=== PATIENT | male | born 1950 | race Caucasian/White ===

== ENCOUNTER 2017-03-10 13:10 | Inpatient (IN) | payer MEDICARE, BC ==
[2017-03-10] MEDS ORDERED: ALBUTEROL SULFATE/IPRATROPIUM 3 ML NEBU IH ONE ×2 (13:15→13:20)
[2017-03-10] MEDS ORDERED: METHYLPREDNISOLONE SOD SUCC/PF 125 MG/2 ML VIAL IV ONE (13:15)
[2017-03-10] MEDS ORDERED: METHYLPREDNISOLONE SOD SUCC/PF 40 MG/ML VIAL ONE (13:20)
--- NOTE | 2017-03-10 13:28 | ERNOTE ---
Dyspnea - Date Date of Service: 03/10/17 - General Presenting Symptoms: shortness of breath, difficulty of breathing Time Seen by Provider: 03/10/17 13:15 Source: patient, family Exam Limitations: no limitations - Immun/Allergies/Home Medications Allergies/Adverse Reactions: Allergies No Known Drug Allergies Allergy (Verified 03/10/17 13:29) Home Medications: HOME MEDICATIONS Blood Sugar Diagnostic, Drum [Accu-Chek Compact] 1 each MC DAILY 05/18/16 [Last Taken Unknown] Ferrous Sulfate [Iron] 325 mg PO DAILY 05/18/16 [Last Taken Unknown] Fluticasone Propionate [Flonase] 1 spray NS BID 05/18/16 [Last Taken Unknown] Lisinopril/Hydrochlorothiazide [Lisinopril-Hctz 20-12.5 mg Tab] 1 each PO DAILY 05/18/16 [Last Taken Unknown] Montelukast Sodium [Singulair] 10 mg PO HS 05/18/16 [Last Taken Unknown] Pantoprazole Sodium [Protonix] 40 mg PO DAILY 05/18/16 [Last Taken Unknown] Vitamin B Complex/Folic Acid [Complex B-100 ER Caplet] 0.4 mg PO DAILY 05/18/16 [Last Taken Unknown] metFORMIN HCL [Glucophage] 1,000 mg PO BIDWM 05/18/16 [Last Taken Unknown] Aspirin [Aspirin Enteric Coated] 81 mg PO DAILY 03/10/17 [Last Taken Unknown] - History of Present Illness Narrative: Pt. comes in with c/o SOB that started last night and worsened since then. Pt. has known COPD and stats that he developed the cough yesterday and then today noted he had a fever and his breathing became extremely congested. Pt. denies any treatment using his combivent inhaler or albuterol nebs prior to arrival or within the past 12 hours. Review of Systems - Review of Systems Constitutional: Present: fever, chills, diaphoresis, weakness, fatigue, malaise. Absent: recent illness, weight loss EYE: Present: no symptoms reported ENT: Present: no symptoms reported. Absent: ear pain, nose congestion, nasal drainage, sore throat Respiratory: Present: shortness of breath, cough, orthopnea, wheezing Cardiology: Present: chest pain - R sided. Absent: palpitations, syncope, edema Gastrointestinal/Abdominal: Present: no symptoms reported. Absent: nausea, vomiting, diarrhea Genitourinary: Present: no symptoms reported Musculoskeletal: Present: no symptoms reported. Absent: back pain, joint pain Skin: Present: no symptoms reported Neurological: Present: weakness. Absent: anxiety, depressed, dizziness/light- headedness, numbness, tingling All Other Systems: All systems neg except as marked - Patient's Past Medical History Patient History - Medical: Anemia, Diabetes Type 2, GERD Patient History - Cardiac/Respiratory: Asthma, Peripheral Vascular Disease Patient History - Cancer: No Hx of Cancer Patient History - Surgical Procedures: Colonoscopy, Cardiac stent, EGD, Total Knee Replacement, Vasectomy, Other Patient History - Other: None - Family History Brother Family History - Medical: No pertinent hx, Other Family History - Cardiac/Respiratory: No pertinent hx Father Family History - Medical: , No pertinent hx Family History - Cardiac/Respiratory: No pertinent hx Grandfather-Maternal Family History - Medical: Diabetes Type 2 Family History - Cardiac/Respiratory: No pertinent hx Mother Family History - Medical: , Hypothyroidism, Osteoporosis Family History - Cardiac/Respiratory: Hypertension Sister Family History - Medical: Other Family History - Cardiac/Respiratory: No pertinent hx - Social History Living Situations: spouse Abuse History: No History of abuse Psych History: No pertinent hx Alcohol Use: occasionally Drug Use: none Physical Exam - Physical Exam General Appearance: Present: wd/wn, alert, no apparent distress Head Exam: Present: normal inspection, no evidence of injury Eye Exam: Normal inspection: bilateral, PERRL: bilateral, EOMI: bilateral Ears, Nose, Throat: Present: normal ENT inspection, normal pharynx Neck: Present: normal inspection, nontender. Absent: lymphadenopathy (R), lymphadenopathy (L) Respiratory: Present: respiratory distress, accessory muscle use - abdominal subcostal, expiration (prolonged), rhonchi, wheezing - throughout exp and insp Cardiovascular/Chest: Present: no murmur, normal peripheral pulses, tachycardia Gastrointestinal/Abdominal: Present: normal bowel sounds, nontender, nondistended Back Exam: Present: normal inspection, normal range of motion, no CVA tenderness , no vertebral tenderness Extremity Exam: Present: normal inspection, non-tender, normal range of motion, no edema Neurological Exam: Present: alert, oriented, normal mood/affect, no motor/ sensory deficits, edge bonder II-XII nml as tested, normal cerebellar test Skin Exam: Present: diaphoresis, pallor ED Progress - Date and Time Seen: Date and Time: 03/10/17 14:[address] Pepe and will change abx to rocephin and zmax per his request and admit for sepsis and pneumonia. - Results and Orders Patient's Lab Results:: I have reviewed the patient's lab results. - Vital Signs Patient's Vital Signs:: I have reviewed the patient's vital signs. - EKG EKG: other - sinus tach no acute EKG read: Reviewed by me EKG Comments: interp by dr jain - X-Ray X-Ray #1 X-Ray: chest Interpretation: Reviewed by me X-ray Comments: RUL and RLL consolidation Departure Clinical Impression: Hypoxia Sepsis Qualifiers: Sepsis type: sepsis due to unspecified organism Qualified Code(s): A41.9 - Sepsis, unspecified organism Pneumonia Qualifiers: Pneumonia type: due to unspecified organism Laterality: right Lung location: unspecified part of lung Qualified Code(s): J18.9 - Pneumonia, unspecified organism - Departure Disposition: [facility] Condition: Serious
[2017-03-10 13:37] LABS: Hematocrit 34.7 % (42.0-52.0); Hemoglobin 11.5 gm/dL (13.5-18.0); Mean Cell Volume 105.5 fl (78-100); Mean Corpuscular Hgb Conc 33.1 g/dl (32-36); Mean Platelet Volume 10.4 fl (6.0-9.5); Red Blood Count 3.29 M/mm3 (4.7-6.0); White Blood Count 13.6 K/mm3 (4.0-10.5)
[2017-03-10 13:41] LABS: Total Cells Counted 100
[2017-03-10 13:50] LABS: Platelet Count 90 K/mm3 (150-450)
[2017-03-10] MEDS ORDERED: ALBUTEROL SULFATE 2.5 MG/3 ML VIAL.NEB IH ONE (13:52)
[2017-03-10] MEDS ORDERED: LEVOFLOXACIN/D5W 750 MG/150 ML BAG IV ONE (13:53)
[2017-03-10] MEDS ORDERED: ALBUTEROL SULFATE 2.5 MG/0.5 ML VIAL.NEB IH ONE (13:57)
[2017-03-10 13:58] LABS: Band 15 % (0-2.0); Eosinophil 1 % (0-3); Lymphocyte 6 % (20-51); Monocyte 7 % (0-9); Neutrophil 71 % (42-75); Neutrophil # 9.7 K/mm3 (1.3-6.0)
[2017-03-10 13:59] LABS: Platelet Estimate Decreased (NORMAL)
[2017-03-10 14:01] LABS: Macrocytosis 2+
[2017-03-10 14:05] LABS: Anisocytosis 1+
[2017-03-10 14:11] LABS: ALT 38 U/L (19-67); AST 41 U/L (0-48); Albumin * 3.4 gm/dl (3.4-5.0); Alkaline Phosphatase * 81 U/L (50-170); Anion Gap 17.6 mmol/L (6.8-13.8); BNP * 3250 pg/mL (5-350); Bilirubin, Total 1.9 mg/dL (0.0-1.1); Blood Urea Nitrogen 20 mg/dL (6-23); Calcium * 8.8 mg/dL (7.9-10.9); Carbon Dioxide 24.2 mmol/L (24-32.6); Chloride 98 mmol/L (97-106); Glucose * 183 mg/dL (70-110); Potassium 4.8 mmol/L (3.4-4.6); Sodium 135 mmol/L (132-142); Total Protein 7.2 gm/dL (6.2-8.2)
[2017-03-10 14:11] LABS: Phosphorus 2.8 mg/dL (2.2-4.2)
[2017-03-10 14:12] LABS: Troponin I Less than 0.017 ng/ml (0.00-0.10)
[2017-03-10 14:34] LABS: Urine Bilirubin 1 mg/dl (NEGATIVE); Urine Blood 50 /ul (NEGATIVE); Urine Ketone Negative (NEGATIVE); Urine Nitrite Negative (NEGATIVE); Urine Protein 30 mg/dL (NEGATIVE); Urine Specific Gravity 1.025 SP.GR. (1.005-1.030); Urine Urobilinogen Normal (NORMAL); Urine pH 5.5 pH (5.0-7.0)
[2017-03-10] MEDS ORDERED: MORPHINE SULFATE 2 MG/ML DISP.SYRIN IV ONE (14:35)
[2017-03-10] MEDS ORDERED: MAGNESIUM SULFATE IN WATER 50 ML IV ONE (14:38)
[2017-03-10] MEDS ORDERED: ACETAMINOPHEN 325 MG TABLET PO PRN (14:43)
[2017-03-10] MEDS ORDERED: AZITHROMYCIN 250 MG TABLET PO STA (14:43)
[2017-03-10] MEDS: NORMAL SALINE 1,000 ML IV SCH (14:50)
[2017-03-10] MEDS ORDERED: ACETAMINOPHEN 325 MG TABLET ONE (15:05)
[2017-03-10 15:07] LABS: Urine Appearance Clear; Urine Bacteria 1+; Urine WBC 0-5 /hpf (0-5)
[2017-03-10] MEDS ORDERED: NORMAL SALINE 1,000 ML IV ONE ×2 (16:32→20:24)
--- NOTE | 2017-03-10 16:39 | HP ---
Chief Complaint - Chief Complaint Date of Service: 03/10/17 Time of Service: 16:30 Chief Complaint: SOB, Right sided CP, cough, F/C. History of Present Illness: Pt. just seen a few days ago for routine f/u in my office and though was complaining of more fatigue, had no other sx. The fatigue continued over the next couple days, with cough beginning the day prior to admission, along with more malaise, but no other sx. He was noted to have some wheezing but nothing else. Cough progressed and on the am of admission he began having increase WOB , chest pain, chills, weakness. In ER he was found to be hypoxic into the mid 80's and in respiratory distress rr in the upper 20's with a chest xray showing scattered infiltrates throughout right lung. Labs were c/w sepsis and so he was admitted under sepsis protocol, treatment for pneumonia. He has several comorbidities that will make his recovery slower including diabetes and COPD and CAD with previous stent placement so do believe he will be here a min. of 2 midnights, possibly longer. - Patient's Past Medical History Patient History - Medical: Anemia, Diabetes Type 2, GERD Patient History - Cardiac/Respiratory: Asthma, COPD - previoius smoker, Peripheral Vascular Disease, CPAP/BiPAP Home Use - though doesn't always tolerate its us., Sleep Apnea Patient History - Cancer: No Hx of Cancer Patient History - Surgical Procedures: Colonoscopy, Cardiac stent, EGD, Total Knee Replacement, Vasectomy, Other Patient History - Other: None - Family History Brother Family History - Medical: No pertinent hx, Other Family History - Cardiac/Respiratory: No pertinent hx Father Family History - Medical: , No pertinent hx Family History - Cardiac/Respiratory: No pertinent hx Grandfather-Maternal Family History - Medical: Diabetes Type 2 Family History - Cardiac/Respiratory: No pertinent hx Mother Family History - Medical: , Hypothyroidism, Osteoporosis Family History - Cardiac/Respiratory: Hypertension Sister Family History - Medical: Other Family History - Cardiac/Respiratory: No pertinent hx - Social History Living Situations: home Abuse History: No History of abuse Psych History: No pertinent hx Smoking Status: Former smoker Have you smoked in the past 12 months: No Do you dip or chew tobacco: No Patient requests Smoking Cessation Consult: No Initiate information on Smoking Cessation: No Alcohol Use: occasionally Drug Use: none - Immunizations Immunizations Up to Date: Yes Hx Pneumococcal Vaccination: Yes History of Influenza Vaccine: Yes Review Of Systems (GEN) - Review of Systems Generalized/Overall Review: Present: Weakness, Chills, Fever, Malaise, Fatigue Respiratory: Present: Cough, Shortness of Breath Cardiac: Present: Chest Pain. Absent: Edema, Palpitations Abdominal: Present: Nausea. Absent: Vomiting Genitourinary: Present: No Symptoms Reported Musculoskeletal: Present: Back Pain Neurological: Present: Weakness Skin: Present: No Symptoms Reported Endocrine: Present: No Symptoms Reported Allergies/Adverse Reactions: Allergies Allergy/AdvReac Type Severity Reaction Status Date / Time No Known Drug Allergies Allergy Verified 03/10/17 16:44 Home Medications: HOME MEDICATIONS Blood Sugar Diagnostic, Drum [Accu-Chek Compact] 1 each MC DAILY 05/18/16 [Last Taken Unknown] Ferrous Sulfate [Iron] 325 mg PO DAILY 05/18/16 [Last Taken Unknown] Fluticasone Propionate [Flonase] 1 spray NS BID 05/18/16 [Last Taken Unknown] Lisinopril/Hydrochlorothiazide [Lisinopril-Hctz 20-12.5 mg Tab] 1 each PO DAILY 05/18/16 [Last Taken Unknown] Montelukast Sodium [Singulair] 10 mg PO HS 05/18/16 [Last Taken Unknown] Pantoprazole Sodium [Protonix] 40 mg PO DAILY 05/18/16 [Last Taken Unknown] Vitamin B Complex/Folic Acid [Complex B-100 ER Caplet] 0.4 mg PO DAILY 05/18/16 [Last Taken Unknown] metFORMIN HCL [Glucophage] 1,000 mg PO BIDWM 05/18/16 [Last Taken Unknown] Aspirin [Aspirin Enteric Coated] 81 mg PO DAILY 03/10/17 [Last Taken Unknown] Exam - Exam Vital Signs: Vital Signs - Last Taken Temp 38.1 C H 03/10/17 15:10 Pulse 120 H 03/10/17 15:10 Resp 28 H 03/10/17 15:10 BP 118/75 03/10/17 15:10 Pulse Ox 96 03/10/17 15:10 Constitutional: Present: Alert, Oriented x3, Moderate distress, Severe distress , Lethargic, Other - very ill appearing especially compared to baseline of a few days ago., Morbidly obese Eye Exam: bilateral eye: normal inspection, PERRL, EOMI Neck: Present: supple Back Exam: Present: normal inspection Respiratory: Present: respiratory distress, accessory muscle use, rales - rales throughout entire lung field on the right. wheezing on the left and right., wheezing Cardiovascular/Chest: Present: no edema, tachycardia Abdomen: Present: Normal bowel sounds, soft, nontender, nondistended, no hepatospenomegaly /Rectal: Present: Exam deferred Extremity: Present: no pedal edema, no calf tenderness Skin Exam: Present: normal color Neurologic: Present: normal mood/affect, oriented x 3 Appearance: Present: appropriate appearance, appropriate insight Eye contact: Present: cooperative, good eye contact, normal speech Thoughts: Present: normal thought pattern, no apparent hallucination Diagnostic Studies: Laboratory Results WBC 13.6 K/mm3 (4.0-10.5) H 03/10/17 13:30 RBC 3.29 M/mm3 (4.7-6.0) L 03/10/17 13:30 Hgb 11.5 gm/dL (13.5-18.0) L 03/10/17 13:30 Hct 34.7 % (42.0-52.0) L 03/10/17 13:30 MCV 105.5 fl (78-100) H 03/10/17 13:30 MCH 35.0 pg (27-31) H 03/10/17 13:30 MCHC 33.1 g/dl (32-36) 03/10/17 13:30 RDW 13.0 % (11.5-14.0) 03/10/17 13:30 Plt Count 90 K/mm3 (150-450) L 03/10/17 13:30 MPV 10.4 fl (6.0-9.5) H 03/10/17 13:30 Neutrophils % (Manual) 71 % (42-75) 03/10/17 13:30 Band Neuts % (Manual) 15 % (0-2.0) H 03/10/17 13:30 Lymphocytes % (Manual) 6 % (20-51) L 03/10/17 13:30 Monocytes % (Manual) 7 % (0-9) 03/10/17 13:30 Eosinophils % (Manual) 1 % (0-3) 03/10/17 13:30 Neutrophils # (Manual) 9.7 K/mm3 (1.3-6.0) H 03/10/17 13:30 Lymphocytes # (Manual) 0.8 k/mm3 (1.5-3.5) L 03/10/17 13:30 Monocytes # (Manual) 1.0 k/mm3 (0.0-1.0) 03/10/17 13:30 Eosinophils # (Manual) 0.1 k/mm3 (0.0-0.7) 03/10/17 13:30 Toxic Vacuolation 1+ 03/10/17 13:30 Platelet Estimate Decreased (NORMAL) L 03/10/17 13:30 Anisocytosis 1+ 03/10/17 13:30 Macrocytosis 2+ 03/10/17 13:30 pCO2 25.7 mmHg (35.0-48.0) L 03/10/17 13:35 pO2 72.6 mmHg (83.0-108.0) L 03/10/17 13:35 HCO3 21.6 mmol/L (21.0-28.0) 03/10/17 13:35 Total CO2 22.4 mmol/L (19.0-24.0) 03/10/17 13:35 Base Excess 0.2 mmol/L (-2.0-3.0) 03/10/17 13:35 ABG pH 7.54 (7.35-7.45) H 03/10/17 13:35 ABG O2 Sat (Measured) 96.4 % (94.0-98.0) 03/10/17 13:35 Sodium 135 mmol/L (132-142) 03/10/17 13:48 Plasma Sodium 136 mmol/L (130-142) 03/10/17 13:48 Potassium 4.8 mmol/L (3.4-4.6) H 03/10/17 13:48 Chloride 98 mmol/L (97-106) 03/10/17 13:48 Carbon Dioxide 24.2 mmol/L (24-32.6) 03/10/17 13:48 Anion Gap 17.6 mmol/L (6.8-13.8) H 03/10/17 13:48 BUN 20 mg/dL (6-23) D 03/10/17 13:48 Creatinine 1.66 mg/dL (0.4-1.4) H D 03/10/17 13:48 Est GFR (Non-Af Amer) 44 mL/min (60-130) L D 03/10/17 13:48 BUN/Creatinine Ratio 12.0 (9.0-21.6) 03/10/17 13:48 Random Glucose 183 mg/dL (70-110) H 03/10/17 13:48 Lactic Acid, Venous 4.6 mmol/L (0.4-1.9) H* 03/10/17 13:48 Calcium 8.8 mg/dL (7.9-10.9) 03/10/17 13:48 Calcium Adj for Albumin 9.0 mg/dL (8.4-10.2) 03/10/17 13:48 Phosphorus 2.8 mg/dL (2.2-4.2) 03/10/17 13:35 Magnesium 1.0 mg/dL (1.2-2.8) L 03/10/17 13:35 Total Bilirubin 1.9 mg/dL (0.0-1.1) H 03/10/17 13:48 AST 41 U/L (0-48) 03/10/17 13:48 ALT 38 U/L (19-67) 03/10/17 13:48 Alkaline Phosphatase 81 U/L (50-170) 03/10/17 13:48 Troponin I Less than 0.017 ng/ml (0.00-0.10) 03/10/17 13:48 B-Natriuretic Peptide 3250 pg/mL (5-350) H 03/10/17 13:48 Total Protein 7.2 gm/dL (6.2-8.2) 03/10/17 13:48 Albumin 3.4 gm/dl (3.4-5.0) 03/10/17 13:48 Procalcitonin 2.82 ng/mL (0.05-0.50) H 03/10/17 13:48 Urine Color Reddish brown 03/10/17 14:25 Urine Appearance Clear 03/10/17 14:25 Urine pH 5.5 pH (5.0-7.0) 03/10/17 14:25 Ur Specific [place] 1.025 SP.GR. (1.005-1.030) 03/10/17 14:25 Urine Protein 30 mg/dL (NEGATIVE) H 03/10/17 14:25 Urine Glucose (UA) Negative mg/dL (NEGATIVE) 03/10/17 14:25 Urine Ketones Negative mg/dL (NEGATIVE) 03/10/17 14:25 Urine Blood 50 /ul (NEGATIVE) H 03/10/17 14:25 Urine Nitrate Negative (NEGATIVE) 03/10/17 14:25 Urine Bilirubin 1 mg/dl (NEGATIVE) H 03/10/17 14:25 Urine Ictotest Positive (NEGATIVE) H 03/10/17 14:25 Prot Sulfosalicylic Acd Negative mg/dL (0) 03/10/17 14:25 Urine Urobilinogen Normal EU/dl (NORMAL) 03/10/17 14:25 Ur Leukocyte Esterase Negative /ul (NEGATIVE) 03/10/17 14:25 Urine RBC 5-10 /hpf (0-5) H 03/10/17 14:25 Urine WBC 0-5 /hpf (0-5) 03/10/17 14:25 Ur Epithelial Cells 0-5 /hpf (0-5) 03/10/17 14:25 Urine Bacteria 1+ (NONE) H 03/10/17 14:25 Urine Culture Comments No culture indicated 03/10/17 14:25 Influenza Type A Ag Negative (NEGATIVE) 03/10/17 14:25 Influenza Type B Ag Negative (NEGATIVE) 03/10/17 14:25 Assessment/Plan - Assessment/Plan (1) Diabetes Assessment: will hold metformin given lactic acidosis - which is definitely from the sepsis due to pneumonia, but could worsen with metformin. will do SSI AC and HS. Problem: Acute Qualifiers: Diabetes mellitus type: type 2 Diabetes mellitus complication status: without complication Diabetes mellitus custodial insulin use: without custodial use Qualified Code(s): E11.9 - Type 2 diabetes mellitus without complications (2) Hypertension Problem: Acute (3) Hypoxia Problem: Acute (4) Pneumonia Assessment: will tx with zmax and rocephin but if his condition worsens will consider changing to cefipime min. 2gm IV q12. consider BIPAP if respiratory distress or sx worsen. Problem: Acute Qualifiers: Pneumonia type: due to unspecified organism Laterality: right Lung location: unspecified part of lung Qualified Code(s): J18.9 - Pneumonia, unspecified organism (5) Sepsis Assessment: sepsis (possibly severe) due to pneumonia with end organ failure - his lungs supported by significant hypoxia, lactic acidosis, elevated procalcitonin and leukocytosis and BNP. He will definitely be here a minimum of 2 midnights. Given the low platelets he could be getting into DIC so will watch these carefully. Problem: Acute Qualifiers: Sepsis type: sepsis due to unspecified organism Qualified Code(s): A41.9 - Sepsis, unspecified organism (6) Discharge planning issues Assessment: given how ill he appears both looking at him, examining him and per labs, he will definitely be here a min. of 2 midnights and wouldn't be surprised if he is here 3-4midnights. Problem: Acute (7) COPD exacerbation Assessment: steroids and nebs, will definitely slow recovery. Problem: Chronic
[2017-03-10] MEDS ORDERED: NORMAL SALINE 1,000 ML IV PRN (16:40)
[2017-03-10] MEDS: INSULIN REGULAR, HUMAN 100 UNITS/ML VIAL SC SCH ×2 (17:10→22:36)
[2017-03-10] MEDS: ALBUTEROL SULFATE/IPRATROPIUM 3 ML NEBU IH SCH (18:16)
[2017-03-10] MEDS ORDERED: METHYLPREDNISOLONE SOD SUCC/PF 40 MG/ML VIAL IV SCH (20:00)
[2017-03-10] MEDS ORDERED: METHYLPREDNISOLONE SOD SUCC 80 MG in WATER FOR INJ.,BACTERIOSTATIC 0 ML IV SCH (20:00)
[2017-03-10] MEDS ORDERED: WATER IV SCH ×2 (20:15)
[2017-03-10] MEDS ORDERED: HYDROCORTISONE SOD SUCCINATE IV SCH ×2 (20:15)
[2017-03-10] MEDS ORDERED: DEXTROSE 5% IV SCH ×2 (20:15)
[2017-03-10] MEDS ORDERED: PANTOPRAZOLE SODIUM 40 MG in NORMAL SALINE 100 ML IV SCH (20:30)
[2017-03-10] MEDS ORDERED: FUROSEMIDE 10 MG/ML VIAL IV ONE (21:44)
[2017-03-10] MEDS: ALBUTEROL SULFATE/IPRATROPIUM 3 ML NEBU IH PRN (22:08)
[2017-03-10] MEDS: MONTELUKAST SODIUM 10 MG TABLET PO SCH (22:22)
[2017-03-10] MEDS: FLUTICASONE PROPIONATE 120 SPRAY INHALER NS SCH (22:23)
[2017-03-10] MEDS: CEFEPIME HCL 2 GM in DEXTROSE 5 % IN WATER 100 ML IV SCH ×2 (22:44)
[2017-03-10 23:20] LABS: Anion Gap 19.1 mmol/L (6.8-13.8); BUN/Creatinine Ratio 13.2 (9.0-21.6); Calcium * 8.1 mg/dL (7.9-10.9); Carbon Dioxide 19.6 mmol/L (24-32.6); Estimated Creat Clear 40.6; Magnesium 1.5 mg/dL (1.2-2.8); Potassium 3.7 mmol/L (3.4-4.6)
[2017-03-11] MEDS: NORMAL SALINE 1,000 ML IV SCH ×3 (00:04→14:42)
[2017-03-11] MEDS: ALBUTEROL SULFATE/IPRATROPIUM 3 ML NEBU IH SCH ×4 (01:13→18:13)
[2017-03-11] MEDS ORDERED: NORMAL SALINE 1,000 ML IV ONE (03:02)
[2017-03-11] MEDS ORDERED: FUROSEMIDE 10 MG/ML VIAL IV ONE ×2 (04:08→10:26)
[2017-03-11] MEDS ORDERED: WATER IV SCH ×2 (06:00)
[2017-03-11] MEDS ORDERED: DEXTROSE 5% IV SCH ×2 (06:00)
[2017-03-11] MEDS ORDERED: BLOOD SUGAR DIAGNOSTIC MC SCH (06:00)
[2017-03-11] MEDS ORDERED: HYDROCORTISONE SOD SUCCINATE IV SCH ×2 (06:00)
[2017-03-11] MEDS ORDERED: NOREPINEPHRINE BITARTRATE 4 MG in DEXTROSE 5 % IN WATER 496 ML IV PRN ×2 (06:04)
[2017-03-11 06:17] LABS: Hematocrit 26.9 % (42.0-52.0); Hemoglobin 9.3 gm/dL (13.5-18.0); Mean Cell Volume 101.1 fl (78-100); Mean Corpuscular Hgb Conc 34.6 g/dl (32-36); Mean Platelet Volume 9.2 fl (6.0-9.5); Platelet Count 70 K/mm3 (150-450); Red Blood Count 2.66 M/mm3 (4.7-6.0); Red Cell Distribution Width 12.7 % (11.5-14.0); White Blood Count 7.4 K/mm3 (4.0-10.5)
[2017-03-11 06:19] LABS: Total Cells Counted 100
[2017-03-11 06:22] LABS: Anion Gap 16.5 mmol/L (6.8-13.8); BUN/Creatinine Ratio 16.1 (9.0-21.6); Calcium * 7.8 mg/dL (7.9-10.9); Carbon Dioxide 22.1 mmol/L (24-32.6); Potassium 3.6 mmol/L (3.4-4.6)
[2017-03-11 06:42] LABS: Band 17 % (0-2.0); Immature Granulocyte 3 (0-1); Lymphocyte 3 % (20-51); Monocyte 3 % (0-9); Neutrophil 74 % (42-75); Neutrophil # 5.5 K/mm3 (1.3-6.0)
--- NOTE | 2017-03-11 06:42 | PN ---
Subjective - Date and Time Seen Date: 03/11/17 Time: 06:19 Subjective Narrative: Pt. moved to SCU due to worsening respiratory distress - requiring BIBPAP and hypotension with SBP into the 80's. He was bolused several liters of IVF, but due to worsening respiratory distress from fluids he required lasix to maintain fluid balance as UOP was low in respect to what he had in. (5L in, < 1L out prior to lasix being given). Abx were changed from zithromax and rocephin to cefipime. This morning he states if he lays on left side he can hardly catch his breath and continues to have right sided chest pain. Overall he feels better than he did when moved to the unit, but still feels lousy. Objective - Review of Systems Generalized/Overall Review: Reports: Weakness, Chills, Fever, Malaise, Fatigue EENTM: Reports: No Symptoms Reported Respiratory: Reports: Cough, Shortness of Breath, Wheezing Cardiac: Reports: Chest Pain. Denies: Palpitations Abdominal: Reports: No Symptoms Reported Genitourinary Symptoms: Reports: No Symptoms Reported Musculoskeletal Complaints: Reports: Back Pain Neurological: Reports: Weakness Skin: Reports: No Symptoms Reported Endocrine: Reports: No Symptoms Reported - Vitals Vitals: Last Vital Signs Temp 37.5 C 03/11/17 03:00 Pulse 97 03/11/17 06:10 Resp 22 H 03/11/17 06:10 BP 93/53 03/11/17 04:58 Pulse Ox 97 03/11/17 06:10 - Abnormal Lab Findings Abnormal Lab Findings: Abnormal Lab Results 03/10/17 03/10/17 03/10/17 Range/Units 16:25 19:30 23:07 RBC (4.7-6.0) M/mm3 Hgb (13.5-18.0) gm/dL Hct (42.0-52.0) % MCV (78-100) fl MCH (27-31) pg Plt Count (150-450) K/mm3 Carbon Dioxide (24-32.6) mmol/L Anion Gap (6.8-13.8) mmol/L Creatinine (0.4-1.4) mg/dL Est GFR (Non-Af Amer) (60-130) mL/min Random Glucose (70-110) mg/dL Lactic Acid, Venous 5.7 H* 7.5 H* 6.5 H* (0.4-1.9) mmol/L 03/10/17 03/11/17 Range/Units 23:07 05:58 RBC 2.66 L (4.7-6.0) M/mm3 Hgb 9.3 L (13.5-18.0) gm/dL Hct 26.9 L (42.0-52.0) % MCV 101.1 H (78-100) fl MCH 35.0 H (27-31) pg Plt Count 70 L (150-450) K/mm3 Carbon Dioxide 19.6 L (24-32.6) mmol/L Anion Gap 19.1 H (6.8-13.8) mmol/L Creatinine 1.74 H (0.4-1.4) mg/dL Est GFR (Non-Af Amer) 42 L (60-130) mL/min Random Glucose 289 H D (70-110) mg/dL Lactic Acid, Venous (0.4-1.9) mmol/L - EKG/Xray Findings EKG: other - tachycardia, but SR. - Exam Constitutional: Present: Alert, Oriented x3, Cooperative, Moderate distress, Middle aged, Morbidly obese ENT Exam: Present: hearing grossly normal Neck: Present: supple Respiratory: Present: respiratory distress, accessory muscle use, rales - scattered throughout right lung field course in nature, coupled with rhonchi and wheezing., rhonchi - heard delicia., wheezing Cardiovascular/Chest: Present: no murmur, tachycardia Abdomen: Present: Normal bowel sounds, soft, nontender, nondistended, obese Extremity: Present: no calf tenderness Skin Exam: Present: normal color Neurologic: Present: normal mood/affect, oriented x 3 Appearance: Present: appropriate appearance, appropriate insight Eye contact: Present: cooperative, good eye contact, normal speech Thoughts: Present: normal thought pattern, no apparent hallucination Cauti Physician Documentation - Urinary Catheter Management Urethral (Cisneros) Urethral Indwelling: Yes Reason for Continuing Indwelling Catheter: Measure accurate output - pt. receiving a large amount of fluid due to hypotension and severe sepsis, at high risk for CHF due to comorbidities - needing cisneros for accurate I/O's. Date of Insertion: 03/10/17 Time of Insertion: 22:00 Assessment/Plan - Problems/Diagnosis (1) Sepsis Problem: Acute Qualifiers: Sepsis type: sepsis due to unspecified organism Qualified Code(s): A41.9 - Sepsis, unspecified organism Narrative: severe sepsis due to pneumonia given significant findings CXR and exam, with signs of End organ failure given need for pressers, BIPAP and large amount of fluid and worsening lactic acid levels. He is slightly better this am with able to come off the BIPAP and levophed need now borderline. (2) Pneumonia Problem: Acute Qualifiers: Pneumonia type: due to unspecified organism Laterality: right Lung location: unspecified part of lung Qualified Code(s): J18.9 - Pneumonia, unspecified organism Narrative: pneumonia is scattered throughout the entire right lung, noted on exam and on CXR, showing severe infection. (3) Hypoxia Problem: Acute (4) Hypertension Problem: Acute Narrative: BP's running low, will hold meds for now. Continue levophed, fluids until SBP' s > 100's consistently. (5) Diabetes Problem: Acute Qualifiers: Diabetes mellitus type: type 2 Diabetes mellitus complication status: without complication Diabetes mellitus long term care pharmacist insulin use: without penitentiary use Qualified Code(s): E11.9 - Type 2 diabetes mellitus without complications Narrative: sugars running high. continue SSI but will increase to High SSI. (6) Discharge planning issues Problem: Acute Narrative: anticipate patient being here until Tuesday given severity of sx and findings and treatment needs. (7) COPD exacerbation Problem: Chronic Narrative: pt. normally with mild disease but showing signs of exacerbation given his wheezing. Was started on IV steroids and nebs, will continue these, but will have to monitor sugars due to the steroids.
[2017-03-11 06:43] LABS: Platelet Estimate Decreased (NORMAL)
[2017-03-11 06:46] LABS: Rouleaux 1+
[2017-03-11 06:48] LABS: Hypochromia Trace; Toxic Granulation 1+
[2017-03-11 06:51] LABS: Macrocytosis 2+
[2017-03-11] MEDS: PANTOPRAZOLE SODIUM 40 MG TABLET.EC PO SCH (06:56)
[2017-03-11] MEDS: INSULIN REGULAR, HUMAN 100 UNITS/ML VIAL SC SCH ×4 (07:02→20:43)
[2017-03-11] MEDS: AZITHROMYCIN 250 MG TABLET PO SCH (08:12)
[2017-03-11] MEDS: FERROUS SULFATE 325 MG TABLET PO SCH (08:13)
[2017-03-11] MEDS: FLUTICASONE PROPIONATE 120 SPRAY INHALER NS SCH ×2 (08:13→20:40)
[2017-03-11] MEDS: VITAMIN B COMP W-C 1 TAB TABLET PO SCH (08:13)
[2017-03-11] MEDS: ASPIRIN 81 MG TABLET.DR PO SCH (08:13)
[2017-03-11] MEDS ORDERED: NON-FORMULARY 1 DOSE DOSE (Lisinopril/Hydrochlorothiazide [Lisinopril-Hctz 20-12.5 Mg Tab] PO SCH (09:00)
[2017-03-11] MEDS: HYDROCORTISONE SODIUM SUCC IV SCH ×4 (14:03→21:26)
[2017-03-11] MEDS: WATER IV SCH ×4 (14:03→21:26)
[2017-03-11] MEDS: DEXTROSE 5% IV SCH ×4 (14:03→21:26)
[2017-03-11] MEDS: CEFEPIME HCL 2 GM in DEXTROSE 5 % IN WATER 100 ML IV SCH ×2 (20:39)
[2017-03-11] MEDS: MONTELUKAST SODIUM 10 MG TABLET PO SCH (20:41)
[2017-03-12] MEDS: ALBUTEROL SULFATE/IPRATROPIUM 3 ML NEBU IH SCH ×4 (00:11→19:10)
[2017-03-12] MEDS: ALBUTEROL SULFATE/IPRATROPIUM 3 ML NEBU IH PRN (02:49)
[2017-03-12] MEDS ORDERED: FUROSEMIDE 10 MG/ML VIAL IV ONE (03:06)
[2017-03-12] MEDS: WATER IV SCH ×4 (05:09→20:54)
[2017-03-12] MEDS: DEXTROSE 5% IV SCH ×4 (05:09→20:54)
[2017-03-12] MEDS: HYDROCORTISONE SODIUM SUCC IV SCH ×4 (05:09→20:54)
[2017-03-12 06:28] LABS: Hematocrit 27.1 % (42.0-52.0); Hemoglobin 9.2 gm/dL (13.5-18.0); Mean Cell Volume 100.7 fl (78-100); Mean Corpuscular Hemoglobin 34.2 pg (27-31); Mean Corpuscular Hgb Conc 33.9 g/dl (32-36); Mean Platelet Volume 9.9 fl (6.0-9.5); Platelet Count 69 K/mm3 (150-450); Red Blood Count 2.69 M/mm3 (4.7-6.0); Red Cell Distribution Width 12.6 % (11.5-14.0); White Blood Count 7.3 K/mm3 (4.0-10.5)
[2017-03-12 06:34] LABS: Total Cells Counted 100
[2017-03-12] MEDS: PANTOPRAZOLE SODIUM 40 MG TABLET.EC PO SCH (06:46)
[2017-03-12] MEDS: INSULIN REGULAR, HUMAN 100 UNITS/ML VIAL SC SCH ×4 (06:47→20:27)
[2017-03-12 06:51] LABS: Albumin * 2.4 gm/dl (3.4-5.0); Anion Gap 14.5 mmol/L (6.8-13.8); BUN/Creatinine Ratio 20.4 (9.0-21.6); Band 2 % (0-2.0); Bilirubin, Total 0.8 mg/dL (0.0-1.1); Carbon Dioxide 24.4 mmol/L (24-32.6); Immature Granulocyte 2 (0-1); Lymphocyte 4 % (20-51); Monocyte 3 % (0-9); Neutrophil 89 % (42-75); Neutrophil # 6.5 K/mm3 (1.3-6.0); Platelet Estimate Decreased (NORMAL); Potassium 2.9 mmol/L (3.4-4.6); Total Protein 6.2 gm/dL (6.2-8.2)
[2017-03-12 06:52] LABS: Hypochromia 1+
[2017-03-12] MEDS: FLUTICASONE PROPIONATE 120 SPRAY INHALER NS SCH ×2 (08:53→20:12)
[2017-03-12] MEDS: FERROUS SULFATE 325 MG TABLET PO SCH (08:53)
[2017-03-12] MEDS: VITAMIN B COMP W-C 1 TAB TABLET PO SCH (08:53)
[2017-03-12] MEDS: AZITHROMYCIN 250 MG TABLET PO SCH (08:53)
[2017-03-12] MEDS: LISINOPRIL 20 MG TABLET PO SCH (09:32)
[2017-03-12] MEDS: ASPIRIN 81 MG TABLET.DR PO SCH (09:32)
[2017-03-12] MEDS: HYDROCHLOROTHIAZIDE 12.5 MG CAPSULE PO SCH (09:33)
--- NOTE | 2017-03-12 10:55 | PN ---
Subjective - Date and Time Seen Date: 03/12/17 Time: 10:41 Subjective Narrative: [place] a little "rough" this am around 230am, SOB, had crackles per hospitalist so gave him 40 of lasix and this improved his breathing. He states he feels much better now, diuresed a lot, though wt. doesn't show much change. He states still ROBLES but this is better. Objective - Review of Systems Generalized/Overall Review: Reports: Weakness. Denies: Chills, Fever, Malaise EENTM: Reports: No Symptoms Reported Respiratory: Reports: Shortness of Breath, Other - ROBLES. Denies: Orthopnea Cardiac: Denies: Chest Pain, Edema, Palpitations Abdominal: Reports: No Symptoms Reported Genitourinary Symptoms: Reports: No Symptoms Reported Musculoskeletal Complaints: Reports: No Symptoms Reported Neurological: Reports: No Symptoms Reported Skin: Reports: No Symptoms Reported Endocrine: Reports: No Symptoms Reported - Vitals Vitals: Last Vital Signs Temp 36.5 C 03/12/17 07:18 Pulse 93 03/12/17 09:32 Resp 22 H 03/12/17 07:18 BP 122/64 03/12/17 09:32 Pulse Ox 92 03/12/17 07:18 - Abnormal Lab Findings Abnormal Lab Findings: Abnormal Lab Results 03/12/17 03/12/17 Range/Units 06:27 06:27 RBC 2.69 L (4.7-6.0) M/mm3 Hgb 9.2 L (13.5-18.0) gm/dL Hct 27.1 L (42.0-52.0) % MCV 100.7 H (78-100) fl MCH 34.2 H (27-31) pg Plt Count 69 L (150-450) K/mm3 MPV 9.9 H (6.0-9.5) fl Neutrophils % (Manual) 89 H (42-75) % Lymphocytes % (Manual) 4 L (20-51) % Immature Granulocytes 2 H (0-1) Neutrophils # (Manual) 6.5 H (1.3-6.0) K/mm3 Lymphocytes # (Manual) 0.3 L (1.5-3.5) k/mm3 Platelet Estimate Decreased L (NORMAL) Potassium 2.9 L (3.4-4.6) mmol/L Anion Gap 14.5 H (6.8-13.8) mmol/L BUN 31 H (6-23) mg/dL Creatinine 1.52 H (0.4-1.4) mg/dL Est GFR (Non-Af Amer) 49 L (60-130) mL/min Random Glucose 193 H (70-110) mg/dL Albumin 2.4 L (3.4-5.0) gm/dl - EKG/Xray Findings EKG: NSR - Exam Constitutional: Present: Alert, Oriented x3, Cooperative, Mild distress, Obese ENT Exam: Present: hearing grossly normal Neck: Present: supple Respiratory: Present: no respiratory distress, no accessory muscle use, rales - scattered throughout right lung field only along with wheezes and E>I Cardiovascular/Chest: Present: regular rate, rhythm, no murmur Abdomen: Present: Normal bowel sounds, soft, nontender Extremity: Present: no pedal edema, no calf tenderness Skin Exam: Present: normal color Neurologic: Present: normal mood/affect, oriented x 3 Appearance: Present: appropriate appearance, appropriate insight, neat Eye contact: Present: cooperative, good eye contact, normal speech Thoughts: Present: normal thought pattern, no apparent hallucination Cauti Physician Documentation - Urinary Catheter Management Urethral (Marsh) Urethral Indwelling: No Date of Insertion: 03/10/17 Time of Insertion: 22:00 Date of Removal: 03/11/17 Time of Removal: 12:30 Assessment/Plan - Problems/Diagnosis (1) Diabetes Problem: Acute Qualifiers: Diabetes mellitus type: type 2 Diabetes mellitus complication status: without complication Diabetes mellitus prison insulin use: without prison use Qualified Code(s): E11.9 - Type 2 diabetes mellitus without complications Narrative: stable, continue SSI, consistent carb diet and decrease steroids. (2) Hypertension Problem: Acute Narrative: stable restart lisinopril (3) Hypoxia Problem: Acute (4) Pneumonia Problem: Acute Qualifiers: Pneumonia type: due to unspecified organism Laterality: right Lung location: unspecified part of lung Qualified Code(s): J18.9 - Pneumonia, unspecified organism Narrative: culture did not grow out anything but due to how sick he was and CXR findings I would say this is most likely strep pneumonia. continue cefipime but at 2gm q24hrs and zithromax (5) Sepsis Problem: Acute Qualifiers: Sepsis type: sepsis due to unspecified organism Qualified Code(s): A41.9 - Sepsis, unspecified organism Narrative: severe sepsis due to pneumonia probably from strep pneumonia. Pt. has stablized well and is on the upswing. Will slowly start withdrawing support to see if he can manage on his own and prepare for potential discharge on Tuesday ( assuming he continues to improve) (6) COPD exacerbation Problem: Chronic Narrative: improving, reduce steroids. continue nebs and cornet and ambulating as tolerated. (7) Anemia Problem: Acute Qualifiers: Anemia type: iron deficiency Iron deficiency anemia type: unspecified iron deficiency Qualified Code(s): D50.9 - Iron deficiency anemia, unspecified Narrative: continue iron supplements and protonix. (8) Hypokalemia due to loss of potassium Problem: Acute Narrative: due to lasix given for volume overload/fluid shifts from fluid resuscitation. doing well from volume standpoint but K was 2.9 this am. will do oral replacement 20meq po bid today and recheck bmp in am. (9) Discharge planning issues Problem: Acute Narrative: anticipate change to zithromax and cefdinir in am and if continues to improve will discharge home on tuesday.
[2017-03-12] MEDS: POTASSIUM CHLORIDE 20 MEQ TABLET.SA PO SCH ×2 (11:14→20:12)
[2017-03-12] MEDS: MONTELUKAST SODIUM 10 MG TABLET PO SCH (20:13)
[2017-03-12] MEDS: CEFEPIME HCL 2 GM in DEXTROSE 5 % IN WATER 100 ML IV SCH ×2 (20:23)
[2017-03-13] MEDS: ALBUTEROL SULFATE/IPRATROPIUM 3 ML NEBU IH SCH ×4 (00:52→18:14)
[2017-03-13 06:13] LABS: Anion Gap 15.3 mmol/L (6.8-13.8); BUN/Creatinine Ratio 21.3 (9.0-21.6); Calcium * 7.9 mg/dL (7.9-10.9); Carbon Dioxide 24.6 mmol/L (24-32.6); Potassium 2.9 mmol/L (3.4-4.6)
[2017-03-13] MEDS: INSULIN REGULAR, HUMAN 100 UNITS/ML VIAL SC SCH ×4 (06:41→20:59)
[2017-03-13] MEDS: PANTOPRAZOLE SODIUM 40 MG TABLET.EC PO SCH (06:41)
[2017-03-13] MEDS ORDERED: BISACODYL 5 MG TABLET.DR PO ONE (06:50)
[2017-03-13] MEDS: FLUTICASONE PROPIONATE 120 SPRAY INHALER NS SCH ×2 (08:43→21:03)
[2017-03-13] MEDS: DEXTROSE 5% IV SCH ×4 (08:43→21:02)
[2017-03-13] MEDS: HYDROCORTISONE SODIUM SUCC IV SCH ×4 (08:43→21:02)
[2017-03-13] MEDS: WATER IV SCH ×4 (08:43→21:02)
[2017-03-13] MEDS: FERROUS SULFATE 325 MG TABLET PO SCH (08:44)
[2017-03-13] MEDS: VITAMIN B COMP W-C 1 TAB TABLET PO SCH (08:44)
[2017-03-13] MEDS: AZITHROMYCIN 250 MG TABLET PO SCH (08:44)
[2017-03-13] MEDS: POTASSIUM CHLORIDE 20 MEQ TABLET.SA PO SCH ×2 (08:44→16:27)
[2017-03-13] MEDS: LISINOPRIL 20 MG TABLET PO SCH (08:44)
[2017-03-13] MEDS: HYDROCHLOROTHIAZIDE 12.5 MG CAPSULE PO SCH (08:44)
[2017-03-13] MEDS: ASPIRIN 81 MG TABLET.DR PO SCH (08:44)
[2017-03-13] MEDS: CEFDINIR 300 MG CAPSULE PO SCH ×2 (09:31→21:03)
[2017-03-13] MEDS: POTASSIUM CHLORIDE 100 ML IV SCH ×4 (09:31→14:50)
--- NOTE | 2017-03-13 09:40 | PN ---
Subjective - Date and Time Seen Date: 03/13/17 Time: 09:22 Subjective Narrative: Pt. feels very good this am, though was wheezing heavily this am. Nebulized albuterol helped a great deal with this. He is walking with less ROBLES and feels like he could go home at any time. Because of how sick he was I told him I wanted to change him to oral abx and be sure he continues to improve, plus want to get him a nebulizer and this is usually easier on Weekdays here. Nurse reports no BM for several days so nutrition program instructor was asked for stool softner which he's started. Objective - Review of Systems Generalized/Overall Review: Reports: Fatigue. Denies: Weakness, Chills, Fever, Malaise EENTM: Reports: No Symptoms Reported Respiratory: Reports: Wheezing. Denies: Cough, Shortness of Breath Cardiac: Denies: Chest Pain, Edema, Palpitations Abdominal: Denies: Nausea, Vomiting, Hematemesis Genitourinary Symptoms: Reports: No Symptoms Reported Musculoskeletal Complaints: Reports: No Symptoms Reported Neurological: Reports: No Symptoms Reported Skin: Reports: No Symptoms Reported Endocrine: Reports: No Symptoms Reported - Vitals Vitals: Last Vital Signs Temp 36.5 C 03/13/17 07:04 Pulse 82 03/13/17 08:44 Resp 18 03/13/17 07:04 BP 114/78 03/13/17 08:44 Pulse Ox 94 03/13/17 07:04 - Abnormal Lab Findings Abnormal Lab Findings: Abnormal Lab Results 03/13/17 Range/Units 05:30 Potassium 2.9 L (3.4-4.6) mmol/L Anion Gap 15.3 H (6.8-13.8) mmol/L BUN 30 H (6-23) mg/dL Creatinine 1.41 H (0.4-1.4) mg/dL Est GFR (Non-Af Amer) 53 L (60-130) mL/min Random Glucose 172 H (70-110) mg/dL - Exam Constitutional: Present: Alert, Oriented x3, Cooperative, No distress, Obese ENT Exam: Present: hearing grossly normal Neck: Present: supple Respiratory: Present: lungs clear, no respiratory distress, no accessory muscle use, rales - scattered throughout lung knowles but are mainly RUL and RML anymore., expiration (prolonged). Absent: wheezing Cardiovascular/Chest: Present: regular rate, rhythm, no edema, no murmur Abdomen: Present: Normal bowel sounds, soft, nontender, nondistended, obese /Rectal: Present: Exam deferred Extremity: Present: no calf tenderness Neurologic: Present: normal mood/affect, oriented x 3 Appearance: Present: appropriate appearance, appropriate insight, neat Eye contact: Present: cooperative, good eye contact, normal speech Thoughts: Present: normal thought pattern, no apparent hallucination Cauti Physician Documentation - Urinary Catheter Management Urethral (Marsh) Urethral Indwelling: No Date of Insertion: 03/10/17 Time of Insertion: 22:00 Date of Removal: 03/11/17 Time of Removal: 12:30 Assessment/Plan - Problems/Diagnosis (1) Diabetes Problem: Acute Qualifiers: Diabetes mellitus type: type 2 Diabetes mellitus complication status: without complication Diabetes mellitus longterm insulin use: without longterm use Qualified Code(s): E11.9 - Type 2 diabetes mellitus without complications Narrative: stable, continue high dose SSI, increase activity and watch diet. (2) Hypertension Problem: Acute Narrative: BP's are in a good range 110's SBP. no changes at this time. (3) Hypoxia Problem: Resolved (4) Pneumonia Problem: Acute Qualifiers: Pneumonia type: due to unspecified organism Laterality: right Lung location: unspecified part of lung Qualified Code(s): J18.9 - Pneumonia, unspecified organism Narrative: improving, change to oral abx and if better can d/c home tomorrow on zithromax and cefdinir. Because he was so sick I don't want to jimenez him out of the hospital without knowing if the oral abx are going to be ok for him. They should be as I suspect this is strep pneumonia due to findings and signs and labs. (5) Sepsis Problem: Acute Qualifiers: Sepsis type: sepsis due to unspecified organism Qualified Code(s): A41.9 - Sepsis, unspecified organism Narrative: severe sepsis is resolving. labs have normalized and clinically he is doing so much better. (6) COPD exacerbation Problem: Chronic Narrative: still wheezing a lot. will continue nebs and try to Rx nebulizer for home use as inhaler I don't believe is working well enough for him. I also talked about how daily exercise on his treadmill at home - goal of 30min daily will help lungs, heart and diabetes. I explained it is the distance traveled as much as the time traveling. is with him and actually prompted this conversation. (7) Anemia Problem: Acute Qualifiers: Anemia type: iron deficiency Iron deficiency anemia type: unspecified iron deficiency Qualified Code(s): D50.9 - Iron deficiency anemia, unspecified Narrative: stable, no changes - continue iron/protonix. (8) Hypokalemia due to loss of potassium Problem: Acute Narrative: K is still low this am 2.9 despite oral of 40 yesterday. will continue 20meq bid and give 40meq KCL via riders and recheck bmp in am. This is the other limiting factor for him not going home today. (9) Discharge planning issues Problem: Acute Narrative: hopefully can discharge home in the am.
[2017-03-13] MEDS: MONTELUKAST SODIUM 10 MG TABLET PO SCH (21:03)
[2017-03-14] MEDS: ALBUTEROL SULFATE/IPRATROPIUM 3 ML NEBU IH SCH ×2 (00:10→06:20)
[2017-03-14 06:01] LABS: Anion Gap 13.6 mmol/L (6.8-13.8); BUN/Creatinine Ratio 17.2 (9.0-21.6); Calcium * 8.6 mg/dL (7.9-10.9); Carbon Dioxide 25.8 mmol/L (24-32.6); Estimated Creat Clear 46.7; Potassium 3.4 mmol/L (3.4-4.6)
[2017-03-14] MEDS: PANTOPRAZOLE SODIUM 40 MG TABLET.EC PO SCH (06:23)
[2017-03-14] MEDS: INSULIN REGULAR, HUMAN 100 UNITS/ML VIAL SC SCH (06:24)
[2017-03-14 06:48] VITALS: BP 137/73
--- NOTE | 2017-03-14 06:59 | DS ---
(1) Diabetes Problem: Acute Qualifiers: Diabetes mellitus type: type 2 Diabetes mellitus complication status: without complication Diabetes mellitus long term acute care registered nurse insulin use: without half-way use Qualified Code(s): E11.9 - Type 2 diabetes mellitus without complications (2) Hypertension Problem: Acute (3) Hypoxia Problem: Resolved (4) Pneumonia Problem: Acute Qualifiers: Pneumonia type: due to unspecified organism Laterality: right Lung location: unspecified part of lung Qualified Code(s): J18.9 - Pneumonia, unspecified organism (5) Sepsis Problem: Acute Qualifiers: Sepsis type: sepsis due to unspecified organism Qualified Code(s): A41.9 - Sepsis, unspecified organism (6) COPD exacerbation Problem: Chronic (7) Anemia Problem: Acute Qualifiers: Anemia type: iron deficiency Iron deficiency anemia type: unspecified iron deficiency Qualified Code(s): D50.9 - Iron deficiency anemia, unspecified (8) Hypokalemia due to loss of potassium Problem: Acute (9) Discharge planning issues Problem: Acute Description of Stay: Pt. admitted for sepsis due to pneumonia, which qualified for severe sepsis criteria as pt. needed large amounts of fluids with consideration for pressors to keep pressures up and BIPAP for his breathing. Because of the large amount of fluids he did have some volume shifts that required lasix, for which he responded well to. He had comorbidities of COPD with exacerbation, requiring nebs and steroids, which he responded well to; Diabetes for which his metformin was held and he was placed on SSI; anemia for which he continued his iron and also developed hypokalemia, most likely from the amount of lasix he was given. At time of discharge his right lung had fine rales throughout, but good AE and breathing comfortably, compared to coarse rales throughout and wheezes and rhonchi, with definite respiratory distress at time of admit. We will continue him on zithromax and cefdinir and Rx albuterol and nebulizer for home use. Procedures Performed: none Discharge Disposition: Home self care Disposition: Home self-care Condition: Good Discharge Activity: Activity as tolerated Discharge Diet: Consistent carbs Referrals: Hank Pepe MD [Primary Care Provider] - 03/24/17 Prescriptions (Any new or edited meds): Albuterol Sulfate/Ipratropium [Duoneb 2.5-0.5MG/3ML Soln] 3 ml IH Q6H PRN #120 nebu PRN Reason: sob wheezing Azithromycin [Zithromax] 250 mg PO DAILY #2 tablet Cefdinir [Omnicef] 300 mg PO BID #16 capsule Complete Home Medications List: Complete Home Medication List: Blood Sugar Diagnostic, Drum [Accu-Chek Compact] 1 each MC DAILY 05/18/16 Ferrous Sulfate [Iron] 325 mg PO DAILY 05/18/16 Fluticasone Propionate [Flonase] 1 spray NS BID 05/18/16 Lisinopril/Hydrochlorothiazide [Lisinopril-Hctz 20-12.5 mg Tab] 1 each PO DAILY 05/18/16 Montelukast Sodium [Singulair] 10 mg PO HS 05/18/16 Pantoprazole Sodium [Protonix] 40 mg PO DAILY 05/18/16 Vitamin B Complex/Folic Acid [Complex B-100 ER Caplet] 0.4 mg PO DAILY 05/18/16 metFORMIN HCL [Glucophage] 1,000 mg PO BIDWM 05/18/16 Aspirin [Aspirin Enteric Coated] 81 mg PO DAILY 03/10/17 Acetaminophen [Tylenol] 650 mg PO Q4H PRN #0 tablet 03/14/17 Albuterol Sulfate/Ipratropium [Duoneb 2.5-0.5MG/3ML Soln] 3 ml IH Q6H PRN #120 nebu 03/14/17 Azithromycin [Zithromax] 250 mg PO DAILY #2 tablet 03/14/17 Cefdinir [Omnicef] 300 mg PO BID #16 capsule 03/14/17
[2017-03-14] MEDS: FLUTICASONE PROPIONATE 120 SPRAY INHALER NS SCH (08:46)
[2017-03-14] MEDS: POTASSIUM CHLORIDE 20 MEQ TABLET.SA PO SCH (08:46)
[2017-03-14] MEDS: ASPIRIN 81 MG TABLET.DR PO SCH (08:46)
[2017-03-14] MEDS: FERROUS SULFATE 325 MG TABLET PO SCH (08:46)
[2017-03-14] MEDS: WATER IV SCH ×2 (08:47)
[2017-03-14] MEDS: HYDROCHLOROTHIAZIDE 12.5 MG CAPSULE PO SCH (08:47)
[2017-03-14] MEDS: AZITHROMYCIN 250 MG TABLET PO SCH (08:47)
[2017-03-14] MEDS: DEXTROSE 5% IV SCH ×2 (08:47)
[2017-03-14] MEDS: CEFDINIR 300 MG CAPSULE PO SCH (08:47)
[2017-03-14] MEDS: VITAMIN B COMP W-C 1 TAB TABLET PO SCH (08:47)
[2017-03-14] MEDS: LISINOPRIL 20 MG TABLET PO SCH (08:47)
[2017-03-14] MEDS: HYDROCORTISONE SODIUM SUCC IV SCH ×2 (08:47)
== END 2017-03-14 09:15 | disposition home or self-care (01) | DRG 871 ==
LOC: ER 13:10 → MS 14:37 → SCU 21:05 → MS 03-11 12:19
PROVIDERS: ADMIT Family Medicine; ATTEND Family Medicine
PROC: 4A033R1 Measurement of Arterial Saturation, Peripheral, Percutaneous Approach (ICD-10-PCS; principal; 2017-03-10)
DX: A41.9 Sepsis, unspecified organism (principal); J18.9 Pneumonia, unspecified organism; J44.1 Chronic obstructive pulmonary disease with (acute) exacerbation; R65.20 Severe sepsis without septic shock; R09.02 Hypoxemia; E87.6 Hypokalemia; D50.9 Iron deficiency anemia, unspecified; J45.909 Unspecified asthma, uncomplicated; E11.9 Type 2 diabetes mellitus without complications; I25.10 Atherosclerotic heart disease of native coronary artery without angina pectoris; Z95.5 Presence of coronary angioplasty implant and graft; Z87.891 Personal history of nicotine dependence

== ENCOUNTER 2017-03-14 16:17 | Emergency (ER) | payer MEDICARE, BC ==
[2017-03-14] MEDS ORDERED: ACETAMINOPHEN 500 MG TABLET PO ONE (16:34)
--- NOTE | 2017-03-14 16:41 | ERNOTE ---
Chest Pain/Cardiac HPI Date of Service: 03/14/17 Chief Complaint: Chest Pain Time Seen by Provider: 03/14/17 16:31 Source: patient, family, RN notes reviewed, past records Exam Limitations: no limitations Immunizations: IMMUNIZATION HX Immunizations Up to Date Yes History of Influenza Vaccine Yes Hx Pneumococcal Vaccination No Allergies/Adverse Reactions: Allergies No Known Drug Allergies Allergy (Verified 03/14/17 16:38) Home Medications: HOME MEDICATIONS Blood Sugar Diagnostic, Drum [Accu-Chek Compact] 1 each MC DAILY 05/18/16 [Last Taken Unknown] Ferrous Sulfate [Iron] 325 mg PO DAILY 05/18/16 [Last Taken Unknown] Fluticasone Propionate [Flonase] 1 spray NS BID 05/18/16 [Last Taken Unknown] Lisinopril/Hydrochlorothiazide [Lisinopril-Hctz 20-12.5 mg Tab] 1 each PO DAILY 05/18/16 [Last Taken Unknown] Montelukast Sodium [Singulair] 10 mg PO HS 05/18/16 [Last Taken Unknown] Pantoprazole Sodium [Protonix] 40 mg PO DAILY 05/18/16 [Last Taken Unknown] Vitamin B Complex/Folic Acid [Complex B-100 ER Caplet] 0.4 mg PO DAILY 05/18/16 [Last Taken Unknown] metFORMIN HCL [Glucophage] 1,000 mg PO BIDWM 05/18/16 [Last Taken Unknown] Aspirin [Aspirin Enteric Coated] 81 mg PO DAILY 03/10/17 [Last Taken Unknown] Acetaminophen [Tylenol] 650 mg PO Q4H PRN #0 tablet 03/14/17 [Last Taken Unknown ] Albuterol Sulfate/Ipratropium [Duoneb 2.5-0.5MG/3ML Soln] 3 ml IH Q6H PRN #120 nebu 03/14/17 [Last Taken Unknown] Azithromycin [Zithromax] 250 mg PO DAILY #2 tablet 03/14/17 [Last Taken Unknown] Cefdinir [Omnicef] 300 mg PO BID #16 capsule 03/14/17 [Last Taken Unknown] Narrative: 67 year old male brought to the ED by his for right sided chest pain that began earlier this afternoon. He was just discharged from the hospital this morning. He was admitted on 03/10/17 with pneumonia and sepsis. He went home on Zithromax and cefdinir. He reports that his chest pain woke him up from a nap, but his reports he was complaining of mild discomfort before he laid down. He had also said he felt hot and was noted to have a fever. He was afebrile on discharge from the hospital earlier this morning. Timing: constant Severity/Quality: mild, aching Location: other - right chest Chest Pain Radiation: no radiation Activities at Onset: rest Nitro Today/Relief: no nitro taken today Aspirin Treatment Today: no aspirin today Prior Treatment: Reports: recently seen, treated by physician, recently hospitalized, currently on antibiotics Review of Systems - Review of Systems Constitutional: Present: fever, chills, fatigue, malaise EYE: Present: no symptoms reported ENT: Present: no symptoms reported Respiratory: Present: shortness of breath, cough. Absent: orthopnea, wheezing, stridor Cardiology: Present: chest pain. Absent: palpitations, syncope, edema Gastrointestinal/Abdominal: Absent: nausea, abdominal pain Genitourinary: Present: no symptoms reported Musculoskeletal: Absent: muscle pain, joint pain Skin: Absent: rash, lesions Neurological: Absent: headache, dizziness/light-headedness Endocrine: Present: no symptoms reported Hematologic/Lymphatic: Present: no symptoms reported Psych: Present: no symptoms reported - Patient's Past Medical History Patient History - Medical: Anemia, Diabetes Type 2, GERD Patient History - Cardiac/Respiratory: Asthma, COPD, Pneumonia, Peripheral Vascular Disease, CPAP/BiPAP Home Use, Sleep Apnea Patient History - Cancer: No Hx of Cancer Patient History - Surgical Procedures: Colonoscopy, Cardiac stent, EGD, Total Knee Replacement, Vasectomy, Other Patient History - Other: None - Family History Brother Family History - Medical: No pertinent hx, Other Family History - Cardiac/Respiratory: No pertinent hx Father Family History - Medical: , No pertinent hx Family History - Cardiac/Respiratory: No pertinent hx Grandfather-Maternal Family History - Medical: Diabetes Type 2 Family History - Cardiac/Respiratory: No pertinent hx Mother Family History - Medical: , Hypothyroidism, Osteoporosis Family History - Cardiac/Respiratory: Hypertension Sister Family History - Medical: Other Family History - Cardiac/Respiratory: No pertinent hx - Social History Living Situations: spouse Abuse History: No History of abuse Psych History: No pertinent hx Smoking Status: Former smoker Alcohol Use: occasionally Drug Use: none - Immunizations Immunizations Up to Date: Yes Hx Pneumococcal Vaccination: No History of Influenza Vaccine: Yes Physical Exam - Physical Exam General Appearance: Present: wd/wn, alert, mild distress, obese Eye Exam: Normal inspection: bilateral Ears, Nose, Throat: Present: normal ENT inspection Neck: Present: normal inspection, nontender, supple Respiratory: Present: no respiratory distress, chest tenderness - Right chest, accessory muscle use - mild, rales - Right mid lung, rhonchi - scattered in right lung Cardiovascular/Chest: Present: no murmur, normal peripheral pulses, tachycardia Gastrointestinal/Abdominal: Present: normal bowel sounds, nontender, soft, distended - obese Extremity Exam: Present: non-tender, normal range of motion, pedal edema - mild bilaterally Neurological Exam: Present: alert, oriented, normal mood/affect, no motor/ sensory deficits Skin Exam: Present: warm/dry, other - face flushed ED Progress - Results and Orders Patient's Lab Results:: I have reviewed the patient's lab results. - Vital Signs Patient's Vital Signs:: I have reviewed the patient's vital signs. Vital Signs: Vital Signs 03/14/17 03/14/17 03/14/17 08:47 16:20 16:38 Temperature 39.0 C H 39.0 C H Pulse Rate 102 H 97 Respiratory 28 H 28 H Rate Blood Pressure 137/73 141/86 144/82 O2 Sat by Pulse 94 94 Oximetry - EKG EKG: unchanged from - 03/10/2017, other - STach EKG read: Reviewed by me - X-Ray X-Ray #1 X-Ray: chest Interpretation: Reviewed by me X-ray Comments: Worsening right upper lobe infiltrate/pneumonia - CT/Ultrasound CT/Ultrasound Narrative: CTA Chest: IMPRESSION: 1. NO EVIDENCE FOR PULMONARY EMBOLUS. 2. CENTRILOBULAR EMPHYSEMATOUS CHANGES WITHIN THE LUNG HUANG 3. CONSOLIDATION INVOLVING THE RIGHT UPPER LOBE, CONCERNING FOR PNEUMONIA. 4. SMALL RIGHT BASAL EFFUSION. Electronically signed by Cooper Stuart M.D.. Cooper Stuart MD - Progress/Reassessment Chief Complaint: Chest Pain Progress:: Improved Progress Note-Subjective: 03/14/17 18:[address] Pepe (PCP) regarding lab and xray results. WBC is stable although bands have come up slightly. Chemistries are stable. Chest xray shows a worsening pneumonia. Patient reports feeling a lot better after having Tylenol and his fever coming down. No longer having chest pain. Will give Levaquin IV and a duoneb. As long as his chest CT is negative for PE he will be able to return home with plans to f/u with Dr. Pepe tomorrow. Departure - Departure Clinical Impression: Right upper lobe pneumonia Qualifiers: Pneumonia type: due to unspecified organism Qualified Code(s): J18.1 - Lobar pneumonia, unspecified organism Disposition: Home Follow Up Needed Condition: Stable Instructions: Community-Acquired Pneumonia, Adult, [id number] Additional Instructions: Continue your current antibiotics and nebulizer treatments Tylenol for fever Contact Dr. Pepe's office tomorrow morning to scheduled follow up Referrals: Hank Pepe MD [Primary Care Provider] -
[2017-03-14 16:56] LABS: Hematocrit 28.6 % (42.0-52.0); Hemoglobin 9.6 gm/dL (13.5-18.0); Mean Cell Volume 100.4 fl (78-100); Mean Corpuscular Hemoglobin 33.7 pg (27-31); Mean Corpuscular Hgb Conc 33.6 g/dl (32-36); Mean Platelet Volume 9.5 fl (6.0-9.5); Platelet Count 103 K/mm3 (150-450); Red Blood Count 2.85 M/mm3 (4.7-6.0); Red Cell Distribution Width 12.6 % (11.5-14.0); White Blood Count 6.5 K/mm3 (4.0-10.5)
[2017-03-14 17:00] LABS: Total Cells Counted 100
[2017-03-14 17:14] LABS: ALT 118 U/L (19-67); AST 108 U/L (0-48); Albumin * 2.5 gm/dl (3.4-5.0); Alkaline Phosphatase * 114 U/L (50-170); Anion Gap 15.3 mmol/L (6.8-13.8); BUN/Creatinine Ratio 16.9 (9.0-21.6); Bilirubin, Total 0.8 mg/dL (0.0-1.1); Blood Urea Nitrogen 22 mg/dL (6-23); Ca. Corrected For Albumin 9.7 mg/dL (8.4-10.2); Calcium * 8.8 mg/dL (7.9-10.9); Carbon Dioxide 24.9 mmol/L (24-32.6); Chloride 99 mmol/L (97-106); Glucose * 143 mg/dL (70-110); Potassium 3.2 mmol/L (3.4-4.6); Sodium 136 mmol/L (132-142); Total Protein 6.1 gm/dL (6.2-8.2)
[2017-03-14 17:15] LABS: Troponin I Less than 0.017 ng/ml (0.00-0.10)
[2017-03-14 17:41] LABS: Band 3 % (0-2.0); Lymphocyte 15 % (20-51); Monocyte 9 % (0-9); Neutrophil 73 % (42-75); Neutrophil # 4.7 K/mm3 (1.3-6.0)
[2017-03-14 17:45] LABS: Platelet Estimate Decreased (NORMAL); RBC Morphology Normal (NORMAL); Toxic Granulation Trace
[2017-03-14] MEDS ORDERED: ALBUTEROL SULFATE/IPRATROPIUM 3 ML NEBU IH ONE ×2 (18:47→18:57)
[2017-03-14] MEDS ORDERED: LEVOFLOXACIN/D5W 750 MG/150 ML BAG IV ONE (18:47)
[2017-03-14] MEDS ORDERED: ALBUTEROL SULFATE 2.5 MG/0.5 ML VIAL.NEB IH ONE (18:51)
[2017-03-14 20:23] VITALS: BP 121/66
== END 2017-03-14 20:33 | disposition home or self-care (01) ==
LOC: ER 16:17
DX: J18.1 Lobar pneumonia, unspecified organism (principal); D64.9 Anemia, unspecified; E11.9 Type 2 diabetes mellitus without complications; K21.9 Gastro-esophageal reflux disease without esophagitis; J44.9 Chronic obstructive pulmonary disease, unspecified

== ENCOUNTER 2017-03-15 10:16 | Inpatient (IN) | payer MEDICARE, BC ==
[2017-03-15] MEDS ORDERED: CEFEPIME HCL 1 GM in DEXTROSE 5 % IN WATER 100 ML IV STA ×2 (10:25)
--- NOTE | 2017-03-15 10:44 | HP ---
Chief Complaint - Chief Complaint Date of Service: 03/15/17 Time of Service: 10:29 Chief Complaint: Fevers; worsening SOB, cough and hemoptysis History of Present Illness: PT. is 67 WM with recent hospitalization for severe sepsis from pneumonia discharged from hospital yesterday as he had remained afebrile x 24hrs prior to discharge, had normal WBC and was looking very stable and able to go home. He was on cefepime in the hospital doing well, was changed to zithromax and cefdnir on day before discharge, again, doing well. Several hours after leaving the hospital he noticed his cough worsening and started running fevers again. He was advised to go to the ER, where he was assessed, had fever and some hypoxia (which improved with neb tx) and CXR which showed worsening pneumonia, but did not look ill enough to readmit, so was given IV levaquin and told to follow-up this am with me. In seeing him, he looked ill, was having increased work of breathing, was hypoxic in our office to 86% on RA and HR 116. At this point, given his recent severe sepsis and worsening sx and failure to be maintained on oral medications, felt it best to readmit patient to inpatient services to redo labs, sputum and blood cultures. Put him O2 until he can maintain sats in low 90's on his own and restart cefepime as this is what worked well for him before. Given the hemoptysis and how ill he looks still would consider strep in the DDx, but not sure why levaquin, zithromax and rocephin didn't work, so have to consider possible klebsiella, staph or even anaerobic pathogens as the cause. I don't believe this is TB. he will definitely be here a minimum of 2 midnights and possibly longer to finish a min. of 7 day course of abx. If sputum or blood cultures can give us direction we may be able to short this hospital stay, but will have to wait and see. It is possible we could SNF him after he is stabilized to finish IV abx. - Patient's Past Medical History Patient History - Medical: Anemia, Diabetes Type 2, GERD Patient History - Cardiac/Respiratory: Asthma, COPD, Pneumonia, Peripheral Vascular Disease, CPAP/BiPAP Home Use, Sleep Apnea Patient History - Cancer: No Hx of Cancer Patient History - Surgical Procedures: Colonoscopy, Cardiac stent, EGD, Total Knee Replacement, Vasectomy, Other Patient History - Other: None - Family History Brother Family History - Medical: No pertinent hx, Other Family History - Cardiac/Respiratory: No pertinent hx Father Family History - Medical: , No pertinent hx Family History - Cardiac/Respiratory: No pertinent hx Grandfather-Maternal Family History - Medical: Diabetes Type 2 Family History - Cardiac/Respiratory: No pertinent hx Mother Family History - Medical: , Hypothyroidism, Osteoporosis Family History - Cardiac/Respiratory: Hypertension Sister Family History - Medical: Other Family History - Cardiac/Respiratory: No pertinent hx - Social History Living Situations: spouse Abuse History: No History of abuse Psych History: No pertinent hx Alcohol Use: occasionally Drug Use: none - Immunizations Immunizations Up to Date: Yes Hx Pneumococcal Vaccination: No History of Influenza Vaccine: Yes Review Of Systems (GEN) - Review of Systems Generalized/Overall Review: Present: Weakness, Chills, Fever, Malaise, Fatigue EENTM: Present: No Symptoms Reported Respiratory: Present: Cough, Shortness of Breath, Wheezing, Other - hemoptysis Cardiac: Present: Chest Pain, Palpitations Abdominal: Present: Nausea. Absent: Vomiting, Hematemesis, Abdominal Pain Genitourinary: Present: No Symptoms Reported Musculoskeletal: Present: No Symptoms Reported Neurological: Present: Weakness Skin: Present: No Symptoms Reported Endocrine: Present: No Symptoms Reported Immunizations: IMMUNIZATION HX Immunizations Up to Date Yes History of Influenza Vaccine Yes Hx Pneumococcal Vaccination No Allergies/Adverse Reactions: Allergies Allergy/AdvReac Type Severity Reaction Status Date / Time No Known Drug Allergies Allergy Verified 03/14/17 16:38 Home Medications: HOME MEDICATIONS Blood Sugar Diagnostic, Drum [Accu-Chek Compact Plus Strips] 1 each MC DAILY 06/23 [Last Taken Unknown] Ferrous Sulfate [Iron] 325 mg PO DAILY 05/18/16 [Last Taken Unknown] Fluticasone Propionate [Flonase] 1 spray NS BID 05/18/16 [Last Taken Unknown] Lisinopril/Hydrochlorothiazide [Lisinopril-Hctz 20-12.5 mg Tab] 1 each PO DAILY 05/18/16 [Last Taken Unknown] Montelukast Sodium [Singulair] 10 mg PO HS 05/18/16 [Last Taken Unknown] Pantoprazole Sodium [Protonix] 40 mg PO DAILY 05/18/16 [Last Taken Unknown] Vitamin B Complex/Folic Acid [Complex B-100 ER Caplet] 0.4 mg PO DAILY 05/18/16 [Last Taken Unknown] metFORMIN HCL [Glucophage] 1,000 mg PO BIDWM 05/18/16 [Last Taken Unknown] Aspirin [Aspirin Enteric Coated] 81 mg PO DAILY 03/10/17 [Last Taken Unknown] Acetaminophen [Tylenol] 650 mg PO Q4H PRN #0 tablet 03/14/17 [Last Taken Unknown ] Azithromycin [Zithromax] 250 mg PO DAILY #2 tablet 03/14/17 [Last Taken Unknown] Cefdinir [Omnicef] 300 mg PO BID #16 capsule 03/14/17 [Last Taken Unknown] Albuterol Sulfate [Albuterol Sulfate 2.5 MG/3 ML] 2.5 mg IH Q4H PRN 03/15/17 [ Last Taken Unknown] Exam - Exam Vital Signs: Vital Signs - Last Taken Temp 36.8 C 03/14/17 18:23 Pulse Resp BP 121/66 03/14/17 20:22 Pulse Ox Constitutional: Present: Alert, Oriented x3, Cooperative, Moderate distress, Lethargic, Obese ENT Exam: Present: hearing grossly normal Eye Exam: bilateral eye: normal inspection, PERRL, EOMI Neck: Present: supple Back Exam: Present: normal inspection Respiratory: Present: respiratory distress, accessory muscle use, rales - scattered throughout entire right lung, worse than yesterday am when I discharged him home. Cardiovascular/Chest: Present: no murmur, tachycardia, edema Peripheral Pulses: dorsalis-pedis (R): 2+, dorsalis-pedis (L): 2+ Abdomen: Present: Normal bowel sounds, soft, nontender, nondistended, no rebound tenderness, no hepatospenomegaly /Rectal: Present: Exam deferred Extremity: Present: lower extremity edema Neurologic: Present: normal mood/affect, oriented x 3 Appearance: Present: appropriate appearance, appropriate insight, neat Eye contact: Present: cooperative, good eye contact, normal speech Thoughts: Present: normal thought pattern, no apparent hallucination Assessment/Plan - Assessment/Plan (1) Respiratory failure with hypoxia Assessment: O2 to keep sats > 90%, RT to monitor and adjust Problem: Acute (2) Fever Assessment: due to worsening pneumonia and failed outpt therapy Problem: Acute (3) Anemia Assessment: exacerbates condition and puts at high risk for morbidity and mortality. Problem: Acute Qualifiers: Anemia type: iron deficiency (4) Diabetes Assessment: will hold metformin and do insulin and diet Problem: Acute Qualifiers: Diabetes mellitus type: type 2 Diabetes mellitus complication status: without complication (5) Hypertension Problem: Acute (6) Pneumonia Assessment: with failed outpt tx. will restart IV cefepime Problem: Acute Qualifiers: (7) COPD exacerbation Assessment: nebs and possibly steroids again. will follow sx and BP's. Problem: Chronic (8) Discharge planning issues Assessment: I anticipate him being here a minimum of 2 midnights, probably a full 7-10 days. We could consider transfer him to a SNF for finishing IVF abx once stable. Problem: Acute
[2017-03-15] MEDS ORDERED: ALBUTEROL SULFATE 2.5 MG/3 ML VIAL.NEB IH PRN ×2 (11:31→13:35)
[2017-03-15 11:43] LABS: Urine Bilirubin 1 mg/dl (NEGATIVE); Urine Blood Negative /ul (NEGATIVE); Urine Ketone Negative (NEGATIVE); Urine Nitrite Negative (NEGATIVE); Urine Protein Negative (NEGATIVE); Urine Specific Gravity 1.015 SP.GR. (1.005-1.030); Urine Urobilinogen Normal (NORMAL)
[2017-03-15 12:01] LABS: Urine Appearance Clear; Urine Bacteria None Seen; Urine Color Yellow; Urine RBC None Seen /hpf (0-5); Urine WBC None Seen /hpf (0-5)
[2017-03-15 12:09] LABS: Hematocrit 30.1 % (42.0-52.0); Hemoglobin 10.1 gm/dL (13.5-18.0); Mean Cell Volume 101.7 fl (78-100); Mean Corpuscular Hemoglobin 34.1 pg (27-31); Mean Corpuscular Hgb Conc 33.6 g/dl (32-36); Mean Platelet Volume 9.4 fl (6.0-9.5); Platelet Count 95 K/mm3 (150-450); Red Blood Count 2.96 M/mm3 (4.7-6.0); Red Cell Distribution Width 12.8 % (11.5-14.0); White Blood Count 6.4 K/mm3 (4.0-10.5)
[2017-03-15 12:11] LABS: Total Cells Counted 100
[2017-03-15 12:17] LABS: Anion Gap 13.3 mmol/L (6.8-13.8); BUN/Creatinine Ratio 14.5 (9.0-21.6); Calcium * 8.9 mg/dL (7.9-10.9); Carbon Dioxide 27.1 mmol/L (24-32.6); Estimated Creat Clear 50.9; Potassium 3.4 mmol/L (3.4-4.6)
[2017-03-15 12:28] LABS: Atypical (Reactive) Lymph 1 % (0-2); Band 2 % (0-2.0); Hypochromia 2+; Immature Granulocyte 2 (0-1); Lymphocyte 4 % (20-51); Monocyte 1 % (0-9); Neutrophil 90 % (42-75); Neutrophil # 5.8 K/mm3 (1.3-6.0); Platelet Estimate Decreased (NORMAL)
[2017-03-15] MEDS: ALBUTEROL SULFATE/IPRATROPIUM 3 ML NEBU IH SCH ×2 (13:23→18:03)
[2017-03-15] MEDS: INSULIN REGULAR, HUMAN 100 UNITS/ML VIAL SC SCH ×2 (16:01→21:11)
[2017-03-15] MEDS: ACETAMINOPHEN 325 MG TABLET PO PRN (18:58)
[2017-03-15] MEDS: NORMAL SALINE 1,000 ML IV PRN (19:00)
[2017-03-15] MEDS: FLUTICASONE PROPIONATE 120 SPRAY INHALER NS SCH (21:03)
[2017-03-15] MEDS: CEFEPIME HCL 1 GM in DEXTROSE 5 % IN WATER 100 ML IV SCH ×2 (21:03)
[2017-03-16] MEDS: NORMAL SALINE 1,000 ML IV PRN ×2 (04:18→12:59)
[2017-03-16] MEDS: INSULIN REGULAR, HUMAN 100 UNITS/ML VIAL SC SCH ×4 (07:04→20:58)
[2017-03-16] MEDS: PANTOPRAZOLE SODIUM 40 MG TABLET.EC PO SCH (07:05)
[2017-03-16] MEDS: ALBUTEROL SULFATE/IPRATROPIUM 3 ML NEBU IH SCH ×3 (07:25→18:18)
[2017-03-16] MEDS: ASPIRIN 81 MG TABLET.DR PO SCH (08:48)
[2017-03-16] MEDS: FLUTICASONE PROPIONATE 120 SPRAY INHALER NS SCH ×2 (08:48→21:00)
[2017-03-16] MEDS: VITAMIN B COMP W-C 1 TAB TABLET PO SCH (08:48)
[2017-03-16] MEDS: FERROUS SULFATE 325 MG TABLET PO SCH (08:48)
[2017-03-16] MEDS: HYDROCHLOROTHIAZIDE 12.5 MG CAPSULE PO SCH (08:48)
[2017-03-16] MEDS: LISINOPRIL 20 MG TABLET PO SCH (08:49)
[2017-03-16] MEDS ORDERED: NON-FORMULARY 1 DOSE DOSE (Lisinopril/Hydrochlorothiazide [Lisinopril-Hctz 20-12.5 Mg Tab] PO SCH (09:00)
[2017-03-16] MEDS: CEFEPIME HCL 1 GM in DEXTROSE 5 % IN WATER 100 ML IV SCH ×4 (11:06→21:02)
--- NOTE | 2017-03-16 15:14 | PN ---
Subjective - Date and Time Seen Date: 03/16/17 Time: 08:15 Subjective Narrative: Patient seen and examined at bedside. No acute issues overnight. Continues to have a cough that is productive of blood tinged sputum. Otherwise, patient denies any new issues or concerns. Objective - Review of Systems Generalized/Overall Review: Reports: Weakness, Fatigue. Denies: Fever EENTM: Reports: No Symptoms Reported Respiratory: Reports: Cough, Shortness of Breath Cardiac: Reports: No Symptoms Reported Abdominal: Reports: No Symptoms Reported Genitourinary Symptoms: Reports: No Symptoms Reported Musculoskeletal Complaints: Reports: No Symptoms Reported Neurological: Reports: No Symptoms Reported Skin: Reports: No Symptoms Reported Endocrine: Reports: No Symptoms Reported Misc: All systems neg except as marked - Vitals Vitals: Last Vital Signs Temp 37.1 C 03/16/17 10:01 Pulse 86 03/16/17 13:38 Resp 19 03/16/17 13:38 BP 158/91 03/16/17 10:01 Pulse Ox 94 03/16/17 13:28 - Exam Constitutional: Present: Alert, Oriented x3, Cooperative, Well developed, Well nourished, No distress, Obese ENT Exam: Present: hearing grossly normal, moist mucous membranes Respiratory: Present: crackles - Easily audible crackles over the right lung posteriorly. No expiratory wheezes appreciated at the time of my exam. Cardiovascular/Chest: Present: regular rate, rhythm, no edema Abdomen: Present: soft, nontender, nondistended Extremity: Present: normal inspection, no pedal edema Skin Exam: Present: normal color, warm/dry, no cyanosis Neurologic: Present: no motor/sensory deficits, alert, normal mood/affect, oriented x 3 Appearance: Present: appropriate appearance, appropriate insight, neat, no memory impairment Eye contact: Present: cooperative, good eye contact, normal speech Thoughts: Present: normal thought pattern, no apparent hallucination Assessment/Plan Plan Narrative: IMPRESSION & PLAN: Right Upper Lobe Pneumonia -Failed previous outpatient treatment -Continue IV Cefepime for now. Preliminary sputum culture growing moderate gram positive cocci. Start IV Vancomycin to cover for possible MRSA. Await final C&S results and de-escalate antibiotics as able. -Urine studies pending for legionella antigen and strep pneumo antigen -Blood cultures NGTD -Continue to monitor clinical course. If patient fails to improve with current plan, consider transfer to a facility where Pulmonology consult is available as the patient may require a bronch and/or cardiothoracic surgery for possible decortication. -Patient will need a follow-up CXR in weeks to monitor for resolution Acute Hypoxic Respiratory Failure -Secondary to above. -Supplemental oxygen as needed with goal SpO2>90% Chronic Anemia and Chronic Thrombocytopenia -Prior records reviewed. It appears the patient has mostly been normocytic or macrocytic other than 1 lab result I can find from March 2013 at which time the patient was microcytic. The patient is currently on iron supplementation. -History of adenomatous polyps on colonoscopy. Most recent EGD and colonoscopy were performed by Dr. Trinh on 06/16/2016. Biopsies taken during EGD revealed benign reactive gastropathy/chemical gastritis and biopsy from the GE junction revealed inflamed cardiac type glandular mucosa. CLOtest and stains for H. pylori were negative. Polypectomies completed during colonoscopy revealed multiple hyperplastic polyps and one serrated adenoma. Per Dr. Trinh s recommendations, the patient should have a repeat colonoscopy in 3 years ( patient will be due in June 2019). -As far as I can tell, there is no identifiable etiology for the patients anemia. He has also had chronic thrombocytopenia of unclear etiology. Recent iron panel from 03/07/2017 revealed a low iron level at 32, low percent saturation 9%, TIBC 375 and normal ferritin at 53. TSH was also checked at that time and within normal limits at 1.74. Further work-up ordered including B12 level, folate level, LDH, haptoglobin, peripheral smear and reticulocyte count (to calculate reticulocyte index). CHRONIC STABLE MEDICAL CONDITIONS: SRIRAM: Continue home CPAP at all times while sleeping. Obstructive lung disease: I am not convinced that the patient is truly having an acute exacerbation as the patient has good air movement and there are no wheezes on exam. No steroids for now. Continue scheduled duo nebs 3 times a day and PRN albuterol nebs. Type 2 diabetes mellitus: Diabetic diet. Monitor blood glucose AC, HS and PRN. Correctional insulin AC,HS. Hold home Metformin while inpatient. GERD: Continue home PPI. Benign essential hypertension: Goal blood pressure is less than 140/90 mmHg. Continue home antihypertensive medications Lisinopril, HCTZ. VTE prophylaxis: SCDs, Lovenox Code Status: Full Code - Problems/Diagnosis (1) Right upper lobe pneumonia Problem: Acute Qualifiers: Pneumonia type: due to unspecified organism Qualified Code(s): J18.1 - Lobar pneumonia, unspecified organism (2) Acute respiratory failure with hypoxia Problem: Acute (3) Macrocytic anemia Problem: Chronic (4) Chronic anemia Problem: Chronic (5) Thrombocytopenia Problem: Chronic (6) Benign essential HTN Problem: Chronic (7) Type 2 diabetes mellitus Problem: Chronic (8) GERD (gastroesophageal reflux disease) Problem: Chronic (9) Obstructive lung disease Problem: Chronic (10) SRIRAM (obstructive sleep apnea) Problem: Chronic
[2017-03-16] MEDS: VANCOMYCIN HCL 1 GM in DEXTROSE 5 % IN WATER 250 ML IV SCH ×2 (16:27)
[2017-03-16] MEDS: ENOXAPARIN SODIUM 40 MG/0.4 ML SYRG SC SCH (16:27)
[2017-03-16] MEDS: SACCHAROMYCES BOULARDII 250 MG CAPSULE PO SCH (21:01)
[2017-03-17] MEDS: VANCOMYCIN HCL 1 GM in DEXTROSE 5 % IN WATER 250 ML IV SCH ×4 (05:12→16:39)
[2017-03-17 06:05] LABS: Hematocrit 27.7 % (42.0-52.0); Hemoglobin 9.1 gm/dL (13.5-18.0); Mean Cell Volume 101.5 fl (78-100); Mean Corpuscular Hemoglobin 33.3 pg (27-31); Mean Corpuscular Hgb Conc 32.9 g/dl (32-36); Mean Platelet Volume 9.5 fl (6.0-9.5); Platelet Count 108 K/mm3 (150-450); Red Blood Count 2.73 M/mm3 (4.7-6.0); White Blood Count 4.9 K/mm3 (4.0-10.5)
[2017-03-17] MEDS: ALBUTEROL SULFATE/IPRATROPIUM 3 ML NEBU IH SCH ×3 (06:14→19:31)
[2017-03-17 06:23] LABS: Total Cells Counted 100
[2017-03-17 06:43] LABS: Eosinophil 5 % (0-3); Lymphocyte 13 % (20-51); Monocyte 10 % (0-9); Neutrophil 70 % (42-75); Neutrophil # 3.4 K/mm3 (1.3-6.0)
[2017-03-17 06:44] LABS: Band 2 % (0-2.0); Immature Granulocyte 0 (0-1)
[2017-03-17 07:21] LABS: Platelet Estimate Decreased (NORMAL); Polychromasia 1+
[2017-03-17 07:22] LABS: Hypochromia 1+; Macrocytosis 1+
[2017-03-17] MEDS: INSULIN REGULAR, HUMAN 100 UNITS/ML VIAL SC SCH ×4 (07:23→21:06)
[2017-03-17 07:25] LABS: Hypersegmented Polys Trace
[2017-03-17 07:26] LABS: Basophilic Stippling Trace
[2017-03-17] MEDS: PANTOPRAZOLE SODIUM 40 MG TABLET.EC PO SCH (07:26)
[2017-03-17 07:35] LABS: Anion Gap 12.9 mmol/L (6.8-13.8); BUN/Creatinine Ratio 10.3 (9.0-21.6); Bilirubin Direct 0.4 mg/dL (0.0-0.3); Bilirubin, Total 0.8 mg/dL (0.0-1.1); Bilirubin,Indirect 0.4 mg/dL (0.1-0.7); Calcium * 8.6 mg/dL (7.9-10.9); Carbon Dioxide 27.2 mmol/L (24-32.6); Estimated Creat Clear 60.6; Folate 17.4 ng/mL (>5.4); Potassium 3.1 mmol/L (3.4-4.6); Total Protein 5.7 gm/dL (6.2-8.2)
[2017-03-17] MEDS: ASPIRIN 81 MG TABLET.DR PO SCH (09:48)
[2017-03-17] MEDS: FERROUS SULFATE 325 MG TABLET PO SCH (09:49)
[2017-03-17] MEDS: FLUTICASONE PROPIONATE 120 SPRAY INHALER NS SCH ×2 (09:49→21:05)
[2017-03-17] MEDS: LISINOPRIL 20 MG TABLET PO SCH (09:49)
[2017-03-17] MEDS: HYDROCHLOROTHIAZIDE 12.5 MG CAPSULE PO SCH (09:49)
[2017-03-17] MEDS: SACCHAROMYCES BOULARDII 250 MG CAPSULE PO SCH ×2 (09:49→21:06)
[2017-03-17] MEDS: VITAMIN B COMP W-C 1 TAB TABLET PO SCH (09:54)
[2017-03-17] MEDS: CEFEPIME HCL 1 GM in DEXTROSE 5 % IN WATER 100 ML IV SCH ×4 (09:55→21:05)
[2017-03-17] MEDS: ACETAMINOPHEN 325 MG TABLET PO PRN (10:31)
--- NOTE | 2017-03-17 12:06 | PATHPSR ---
PHYSICIAN: Hank Pepe LAB#: [id number] SPECIMEN DATE: 03/17/2017 CLINICAL INFORMATION: Patient is a 67-year-old male who recently was admitted for right upper lobe pneumonia with sepsis. Patient has a history of diabetes type 2, COPD, GERD and hypertension. Patient has anemia and thrombocytopenia. Peripheral smear review by the pathologist is ordered for these reasons. CBC: WBC 4.9 K/mm3, hemoglobin 9.1 gm/dl, hematocrit 27.7 %, MCV is 101.5 fl, MCH is 33.3 pg, MCHC is 32.9 g/dl, Platelet count 108,000. Manual differential: Neutrophils 70 %, bands 2 %, lymphocytes 13 %, monocytes 10 %, eosinophils 5 %, basophils 0 %, atypical reactive lymphocytes 0 %. RED BLOOD CELLS: Mild to moderate anemia with macrocytosis PLATELETS: Thrombocytopenia WHITE BLOOD CELLS: Mild eosinophilia and mild monocytosis , some hypersegmented neutrophils DIAGNOSIS: PERIPHERAL BLOOD SMEAR, REVIEW BY PATHOLOGIST: -MILD THROMBOCYTOPENIA, MILD ANEMIA WITH MACROCYTOSIS, MILD EOSINOPHILIA AND MILD MONOCYTOSIS, SEE COMMENT COMMENT: The patient has normal B12 and folate. No recent iron studies. The mildly macrocytic anemia is unexplained by our review. No reason for thrombocytopenia is identified. Correlation with clinical findings including reaction to medications is suggested. If the thrombocytopenia and anemia persists, hematology consultation and bone marrow evaluation is suggested. No immature elements or malignancy is identified on our examination.
[2017-03-17] MEDS: ENOXAPARIN SODIUM 40 MG/0.4 ML SYRG SC SCH (15:08)
[2017-03-17] MEDS ORDERED: POTASSIUM CHLORIDE 20 MEQ TABLET.SA PO ONE (15:48)
--- NOTE | 2017-03-17 15:54 | PN ---
Subjective - Date and Time Seen Date: 03/17/17 Time: 08:00 Subjective Narrative: Patient seen and examined at bedside. No acute issues overnight. The patient states that he feels night and day better than he did yesterday and he is encouraged by the marked improvement he has made over the past 24 hours. The patient denies any new issues or concerns. Objective - Review of Systems Generalized/Overall Review: Reports: Fatigue. Denies: Fever EENTM: Reports: No Symptoms Reported Respiratory: Reports: Cough - Markedly improved from yesterday, Shortness of Breath - Markedly improved from yesterday Cardiac: Reports: No Symptoms Reported Abdominal: Reports: No Symptoms Reported Genitourinary Symptoms: Reports: No Symptoms Reported Musculoskeletal Complaints: Reports: No Symptoms Reported Neurological: Reports: No Symptoms Reported Skin: Reports: No Symptoms Reported Endocrine: Reports: No Symptoms Reported Misc: All systems neg except as marked - Vitals Vitals: Last Vital Signs Temp 37.2 C 03/17/17 14:24 Pulse 95 03/17/17 14:24 Resp 20 03/17/17 14:24 BP 108/50 03/17/17 14:24 Pulse Ox 90 03/17/17 14:24 - Abnormal Lab Findings Abnormal Lab Findings: Abnormal Lab Results 03/17/17 03/17/17 03/17/17 Range/Units 05:40 05:40 05:40 RBC 2.73 L (4.7-6.0) M/mm3 Hgb 9.1 L (13.5-18.0) gm/dL Hct 27.7 L (42.0-52.0) % MCV 101.5 H (78-100) fl MCH 33.3 H (27-31) pg Plt Count 108 L (150-450) K/mm3 Lymphocytes % (Manual) 13 L (20-51) % Monocytes % (Manual) 10 H (0-9) % Eosinophils % (Manual) 5 H (0-3) % Lymphocytes # (Manual) 0.6 L (1.5-3.5) k/mm3 Platelet Estimate Decreased L (NORMAL) Percent Retic 2.1 H (0.4-1.8) % Immature Retic Fraction 30.2 H (2.3-13.4) % Retic Hgb Content 26.5 L (29-35) pg Potassium 3.1 L (3.4-4.6) mmol/L Random Glucose 133 H (70-110) mg/dL Direct Bilirubin 0.4 H (0.0-0.3) mg/dL Total Protein 5.7 L (6.2-8.2) gm/dL Albumin 2.0 L (3.4-5.0) gm/dl - Exam Constitutional: Present: Alert, Oriented x3, Cooperative, Well developed, No distress, Obese ENT Exam: Present: moist mucous membranes Respiratory: Present: no respiratory distress, no accessory muscle use, other - Coarse breath sounds on the right with very minimal crackles which is a dramatic improvement from yesterday's exam. No wheezes appreciated on exam. Cardiovascular/Chest: Present: regular rate, rhythm, no edema Abdomen: Present: soft, nontender, nondistended, obese Extremity: Present: non-tender, normal inspection, no pedal edema Skin Exam: Present: normal color, warm/dry, no cyanosis Neurologic: Present: no motor/sensory deficits, alert, normal mood/affect, oriented x 3 Appearance: Present: appropriate appearance, appropriate insight, neat, no memory impairment Eye contact: Present: cooperative, good eye contact, normal speech Thoughts: Present: normal thought pattern, no apparent hallucination Assessment/Plan Plan Narrative: IMPRESSION & PLAN: Right Upper Lobe Pneumonia -Failed previous outpatient treatment -Continue IV Cefepime. Preliminary sputum culture growing moderate gram positive cocci. Continue IV Vancomycin (started on 03/16/2017) to cover for possible MRSA. Await final C&S results and de-escalate antibiotics as able. Given the severity of the patient's pneumonia on chest x-ray and the fact that he has failed prior treatment, the plan will be to continue IV antibiotics for at least 5-7 days. -Urine studies pending for legionella antigen and strep pneumo antigen -Blood cultures NGTD -Continue to monitor clinical course. If patient fails to improve with current plan, consider transfer to a facility where Pulmonology consult is available as the patient may require a bronch and/or cardiothoracic surgery for possible decortication. -Patient will need a follow-up CXR in 4-6 to monitor for resolution Acute Hypoxic Respiratory Failure - Improved -Secondary to above. -Supplemental oxygen as needed with goal SpO2>90% Chronic Anemia and Chronic Thrombocytopenia -Prior records reviewed. It appears the patient has mostly been normocytic or macrocytic other than 1 lab result I can find from March 2013 at which time the patient was microcytic. The patient is currently on iron supplementation. -History of adenomatous polyps on colonoscopy. Most recent EGD and colonoscopy were performed by Dr. Trinh on 06/16/2016. Biopsies taken during EGD revealed benign reactive gastropathy/chemical gastritis and biopsy from the GE junction revealed inflamed cardiac type glandular mucosa. CLOtest and stains for H. pylori were negative. Polypectomies completed during colonoscopy revealed multiple hyperplastic polyps and one serrated adenoma. Per Dr. Trinh s recommendations, the patient should have a repeat colonoscopy in 3 years ( patient will be due in June 2019). -As far as I can tell, there is no identifiable etiology for the patients anemia. He has also had chronic thrombocytopenia of unclear etiology. Recent iron panel from 03/07/2017 revealed a low iron level at 32, low percent saturation 9%, TIBC 375 and normal ferritin at 53. TSH was also checked at that time and within normal limits at 1.74. Further work-up ordered including B12 level, folate level, LDH, haptoglobin, peripheral smear and reticulocyte count (to calculate reticulocyte index). -B12 level normal -Folate level normal -LDH normal -Reticulocyte index is less than 2% which indicates hypoproliferation -Peripheral smear pathology report pending -I'm suspicious that the patient may have MDS and I would recommend referral to hematology and a bone marrow biopsy as an outpatient for further evaluation and management. CHRONIC STABLE MEDICAL CONDITIONS: SRIRAM: Continue home CPAP at all times while sleeping. Obstructive lung disease: I am not convinced that the patient is truly having an acute exacerbation as the patient has good air movement and there are no wheezes on exam. No steroids for now. Continue scheduled duo nebs 3 times a day and PRN albuterol nebs. Type 2 diabetes mellitus: Diabetic diet. Monitor blood glucose AC, HS and PRN. Correctional insulin AC,HS. Hold home Metformin while inpatient. GERD: Continue home PPI. Benign essential hypertension: Goal blood pressure is less than 140/90 mmHg. Continue home antihypertensive medications - Lisinopril, HCTZ. VTE prophylaxis: SCDs, Lovenox Code Status: Full Code - Problems/Diagnosis (1) Right upper lobe pneumonia Problem: Acute Qualifiers: Pneumonia type: due to unspecified organism Qualified Code(s): J18.1 - Lobar pneumonia, unspecified organism (2) Acute respiratory failure with hypoxia Problem: Acute (3) Macrocytic anemia Problem: Chronic (4) Chronic anemia Problem: Chronic (5) Thrombocytopenia Problem: Chronic (6) Benign essential HTN Problem: Chronic (7) Type 2 diabetes mellitus Problem: Chronic (8) GERD (gastroesophageal reflux disease) Problem: Chronic (9) Obstructive lung disease Problem: Chronic (10) SRIRAM (obstructive sleep apnea) Problem: Chronic
[2017-03-18 04:21] LABS: Hematocrit 27.1 % (42.0-52.0); Hemoglobin 9.2 gm/dL (13.5-18.0); Mean Cell Volume 99.3 fl (78-100); Mean Corpuscular Hemoglobin 33.7 pg (27-31); Mean Corpuscular Hgb Conc 33.9 g/dl (32-36); Platelet Count 115 K/mm3 (150-450); Red Blood Count 2.73 M/mm3 (4.7-6.0); White Blood Count 7.4 K/mm3 (4.0-10.5)
[2017-03-18 04:30] LABS: Anion Gap 10.2 mmol/L (6.8-13.8); BUN/Creatinine Ratio 8.8 (9.0-21.6); Calcium * 8.7 mg/dL (7.9-10.9); Carbon Dioxide 28.6 mmol/L (24-32.6); Estimated Creat Clear 56.2; Potassium 3.8 mmol/L (3.4-4.6)
[2017-03-18] MEDS ORDERED: VANCOMYCIN HCL LEVEL XX ONE (04:30)
[2017-03-18] MEDS: VANCOMYCIN HCL 1 GM in DEXTROSE 5 % IN WATER 250 ML IV SCH ×2 (04:51)
[2017-03-18] MEDS: ALBUTEROL SULFATE/IPRATROPIUM 3 ML NEBU IH SCH ×2 (06:00→13:02)
[2017-03-18] MEDS: INSULIN REGULAR, HUMAN 100 UNITS/ML VIAL SC SCH ×2 (06:47→11:41)
[2017-03-18] MEDS: PANTOPRAZOLE SODIUM 40 MG TABLET.EC PO SCH (06:48)
--- NOTE | 2017-03-18 07:46 | PN ---
Subjective - Date and Time Seen Date: 03/18/17 Time: 07:44 Subjective Narrative: Patient seen and examined at bedside. No acute issues overnight. The patient denies any new issues or concerns. Objective - Review of Systems Generalized/Overall Review: Reports: No Symptoms Reported EENTM: Reports: No Symptoms Reported Respiratory: Reports: Cough, Shortness of Breath - improving Cardiac: Reports: No Symptoms Reported Abdominal: Reports: No Symptoms Reported Genitourinary Symptoms: Reports: No Symptoms Reported Musculoskeletal Complaints: Reports: No Symptoms Reported Neurological: Reports: No Symptoms Reported Skin: Reports: No Symptoms Reported Endocrine: Reports: No Symptoms Reported Misc: All systems neg except as marked - Vitals Vitals: Last Vital Signs Temp 37.3 C 03/18/17 02:53 Pulse 92 03/18/17 06:10 Resp 20 03/18/17 06:10 BP 140/71 03/18/17 02:53 Pulse Ox 96 03/18/17 06:00 - Abnormal Lab Findings Abnormal Lab Findings: Abnormal Lab Results 03/18/17 03/18/17 Range/Units 04:17 04:17 RBC 2.73 L (4.7-6.0) M/mm3 Hgb 9.2 L (13.5-18.0) gm/dL Hct 27.1 L (42.0-52.0) % MCH 33.7 H (27-31) pg Plt Count 115 L (150-450) K/mm3 BUN/Creatinine Ratio 8.8 L (9.0-21.6) - Exam Constitutional: Present: Alert, Oriented x3, Cooperative, Well developed, No distress, Obese ENT Exam: Present: hearing grossly normal, moist mucous membranes Respiratory: Present: no respiratory distress, no accessory muscle use. Absent : crackles, rales, rhonchi, wheezing Cardiovascular/Chest: Present: regular rate, rhythm, edema - Trace to 1+ pitting edema in bilateral lower extremities Abdomen: Present: soft, nontender, nondistended, obese Extremity: Present: non-tender, normal inspection, lower extremity edema - Trace to 1+ pitting edema in bilateral lower extremities Skin Exam: Present: normal color, warm/dry, no cyanosis Neurologic: Present: alert, normal mood/affect, oriented x 3 Appearance: Present: appropriate appearance, appropriate insight, neat, no memory impairment Eye contact: Present: cooperative, good eye contact, normal speech Thoughts: Present: normal thought pattern, no apparent hallucination Assessment/Plan Plan Narrative: IMPRESSION & PLAN: Right Upper Lobe Pneumonia -Failed previous outpatient treatment -Continue IV Cefepime. Preliminary sputum culture growing moderate gram positive cocci. Continue IV Vancomycin (started on 03/16/2017) to cover for possible MRSA. Await final C&S results and de-escalate antibiotics as able. Given the severity of the patient's pneumonia on chest x-ray and initial exam and the fact that he has failed prior treatment, the plan will be to continue IV antibiotics for at least 5-7 days. -Urine studies pending for legionella antigen and strep pneumo antigen -Blood cultures NGTD -Continue to monitor clinical course. If patient fails to improve with current plan, consider transfer to a facility where Pulmonology consult is available as the patient may require a bronch and/or cardiothoracic surgery for possible decortication. -Patient will need a follow-up CXR in 4-6 to monitor for resolution Acute Hypoxic Respiratory Failure - Improved/Resolved -Secondary to above. -Supplemental oxygen as needed with goal SpO2>90% Chronic Anemia and Chronic Thrombocytopenia -Prior records reviewed. It appears the patient has mostly been normocytic or macrocytic other than 1 lab result I can find from March 2013 at which time the patient was microcytic. The patient is currently on iron supplementation. -History of adenomatous polyps on colonoscopy. Most recent EGD and colonoscopy were performed by Dr. Trinh on 06/16/2016. Biopsies taken during EGD revealed benign reactive gastropathy/chemical gastritis and biopsy from the GE junction revealed inflamed cardiac type glandular mucosa. CLOtest and stains for H. pylori were negative. Polypectomies completed during colonoscopy revealed multiple hyperplastic polyps and one serrated adenoma. Per Dr. Trinh s recommendations, the patient should have a repeat colonoscopy in 3 years ( patient will be due in June 2019). -As far as I can tell, there is no identifiable etiology for the patients anemia. He has also had chronic thrombocytopenia of unclear etiology. Recent iron panel from 03/07/2017 revealed a low iron level at 32, low percent saturation 9%, TIBC 375 and normal ferritin at 53. TSH was also checked at that time and within normal limits at 1.74. Further work-up ordered including B12 level, folate level, LDH, haptoglobin, peripheral smear and reticulocyte count (to calculate reticulocyte index). -B12 level normal -Folate level normal -LDH normal -Reticulocyte index is less than 2% which indicates hypoproliferation -Peripheral smear pathology report from 03/17/2017: Mild thrombocytopenia , mild anemia with macrocytosis, mild eosinophilia and mild monocytosis. The mildly macrocytic anemia is unexplained by our review. No reason for thrombocytopenia is identified. No immature elements or malignancy is identified on our examination -I'm suspicious that the patient may have MDS and I would recommend referral to hematology and a bone marrow biopsy as an outpatient for further evaluation and management. CHRONIC STABLE MEDICAL CONDITIONS: SRIRAM: Continue home CPAP at all times while sleeping. Obstructive lung disease: I am not convinced that the patient is truly having an acute exacerbation as the patient has good air movement and there are no wheezes on exam. No steroids for now. Continue scheduled duo nebs 3 times a day and PRN albuterol nebs. Type 2 diabetes mellitus: Diabetic diet. Monitor blood glucose AC, HS and PRN. Correctional insulin AC,HS. Hold home Metformin while inpatient. GERD: Continue home PPI. Benign essential hypertension: Goal blood pressure is less than 140/90 mmHg. Continue home antihypertensive medications - Lisinopril, HCTZ. VTE prophylaxis: SCDs, Lovenox Code Status: Full Code Disposition: Continue IV antibiotics through the weekend with plans to discharge the patient home on 03/21/2017. - Problems/Diagnosis (1) Right upper lobe pneumonia Problem: Acute Qualifiers: Pneumonia type: due to unspecified organism Qualified Code(s): J18.1 - Lobar pneumonia, unspecified organism (2) Acute respiratory failure with hypoxia Problem: Acute (3) Macrocytic anemia Problem: Chronic (4) Chronic anemia Problem: Chronic (5) Thrombocytopenia Problem: Chronic (6) Benign essential HTN Problem: Chronic (7) Type 2 diabetes mellitus Problem: Chronic (8) GERD (gastroesophageal reflux disease) Problem: Chronic (9) Obstructive lung disease Problem: Chronic (10) SRIRAM (obstructive sleep apnea) Problem: Chronic
[2017-03-18] MEDS: FLUTICASONE PROPIONATE 120 SPRAY INHALER NS SCH (08:11)
[2017-03-18] MEDS: ASPIRIN 81 MG TABLET.DR PO SCH (08:11)
[2017-03-18] MEDS: FERROUS SULFATE 325 MG TABLET PO SCH (08:11)
[2017-03-18] MEDS: HYDROCHLOROTHIAZIDE 12.5 MG CAPSULE PO SCH (08:12)
[2017-03-18] MEDS: SACCHAROMYCES BOULARDII 250 MG CAPSULE PO SCH (08:12)
[2017-03-18] MEDS: LISINOPRIL 20 MG TABLET PO SCH (08:13)
[2017-03-18] MEDS: VITAMIN B COMP W-C 1 TAB TABLET PO SCH (08:18)
[2017-03-18] MEDS: CEFEPIME HCL 1 GM in DEXTROSE 5 % IN WATER 100 ML IV SCH ×2 (11:42)
[2017-03-18] MEDS ORDERED: LEVOFLOXACIN/D5W 750 MG/150 ML BAG IV SCH (13:30)
[2017-03-18] MEDS ORDERED: NORMAL SALINE 1,000 ML IV PRN (14:25)
[2017-03-18 15:04] LABS: Haptoglobin 288 mg/dL (43-212)
[2017-03-18] MEDS: ENOXAPARIN SODIUM 40 MG/0.4 ML SYRG SC SCH (15:04)
[2017-03-18 16:30] VITALS: BP 131/72
--- NOTE | 2017-03-20 09:59 | DS ---
Transfer Discharge Summary - Diagnosis(s)/Problems (1) Right upper lobe pneumonia Problem: Acute (2) Acute respiratory failure with hypoxia Problem: Acute (3) Macrocytic anemia Problem: Chronic (4) Chronic anemia Problem: Chronic (5) Thrombocytopenia Problem: Chronic (6) Benign essential HTN Problem: Chronic (7) Type 2 diabetes mellitus Problem: Chronic (8) GERD (gastroesophageal reflux disease) Problem: Chronic (9) Obstructive lung disease Problem: Chronic (10) SRIRAM (obstructive sleep apnea) Problem: Chronic - Course Description of Stay: ADMISSION DATE: 03/15/2017 TRANSFER DATE: 03/18/[address] FAITH: PT. is 67 WM with recent hospitalization for severe sepsis from pneumonia discharged from hospital yesterday as he had remained afebrile x 24hrs prior to discharge, had normal WBC and was looking very stable and able to go home. He was on cefepime in the hospital doing well, was changed to zithromax and cefdnir on day before discharge, again, doing well. Several hours after leaving the hospital he noticed his cough worsening and started running fevers again. He was advised to go to the ER, where he was assessed, had fever and some hypoxia (which improved with neb tx) and CXR which showed worsening pneumonia, but did not look ill enough to readmit, so was given IV levaquin and told to follow-up this am with me. In seeing him, he looked ill, was having increased work of breathing, was hypoxic in our office to 86% on RA and HR 116. At this point, given his recent severe sepsis and worsening sx and failure to be maintained on oral medications, felt it best to readmit patient to inpatient services to redo labs, sputum and blood cultures. Put him O2 until he can maintain sats in low 90's on his own and restart cefepime as this is what worked well for him before. Given the hemoptysis and how ill he looks still would consider strep in the DDx, but not sure why levaquin, zithromax and rocephin didn't work, so have to consider possible klebsiella, staph or even anaerobic pathogens as the cause. I don't believe this is TB. He will definitely be here a minimum of 2 midnights and possibly longer to finish a min. of 7 day course of abx. If sputum or blood cultures can give us direction we may be able to short this hospital stay, but will have to wait and see. It is possible we could SNF him after he is stabilized to finish IV abx. PROBLEM BASED HOSPITAL COURSE: Right Upper Lobe Pneumonia -Failed previous outpatient treatment -Patient started on IV Cefepime on admission and this was continued throughout the patient's hospitalization. Preliminary sputum culture was growing moderate gram positive cocci so IV Vancomycin was started on 03/16/2017 to cover for possible MRSA. After the patient spiked a fever of 38.6C on 03/18, he was also started on IV Levaquin prior to transfer. -Final sputum culture results were available after the patient transferred and sputum culture results indicate no pathogens identified. -Urine studies NEGATIVE for legionella antigen and strep pneumo antigen -Blood cultures NGTD -Given the patient's CXR and exam findings, I was concerned that if he failed to improve despite aggressive treatment with IV antibiotics, we would need to consider transfer to a facility where Pulmonology consult is available as the patient may require a bronch and/or cardiothoracic surgery for possible open lung biopsy +/- decortication. The patient was improving as expected until he started spiking fevers again on 03/18/2017 with a Tmax of 38.6 degrees Celsius. I discussed my concerns with the patient and his and we all agreed that the best plan of care would be to transfer the patient to hospital where pulmonology and possible cardiothoracic surgery was available. -Patient will need a follow-up CXR in 4-6 to monitor for resolution Acute Hypoxic Respiratory Failure - Improved -Secondary to above. -Patient treated with supplemental oxygen as needed with goal SpO2>90% Chronic Anemia and Chronic Thrombocytopenia -Prior records reviewed. It appears the patient has mostly been normocytic or macrocytic other than 1 lab result I can find from March 2013 at which time the patient was microcytic. The patient is currently on iron supplementation. -History of adenomatous polyps on colonoscopy. Most recent EGD and colonoscopy were performed by Dr. Trinh on 06/16/2016. Biopsies taken during EGD revealed benign reactive gastropathy/chemical gastritis and biopsy from the GE junction revealed inflamed cardiac type glandular mucosa. CLOtest and stains for H. pylori were negative. Polypectomies completed during colonoscopy revealed multiple hyperplastic polyps and one serrated adenoma. Per Dr. Trinh s recommendations, the patient should have a repeat colonoscopy in 3 years ( patient will be due in June 2019). -As far as I can tell, there is no identifiable etiology for the patients anemia. He has also had chronic thrombocytopenia of unclear etiology. Recent iron panel from 03/07/2017 revealed a low iron level at 32, low percent saturation 9%, TIBC 375 and normal ferritin at 53. TSH was also checked at that time and was within normal limits at 1.74. Further work-up completed during the patient's hospital stay which included B12 level, folate level, LDH, haptoglobin, peripheral smear and reticulocyte count (to calculate reticulocyte index). -B12 level normal -Folate level normal -LDH normal -Haptoglobin level pending at the time of transfer -Reticulocyte index is less than 2% which indicates hypoproliferation -Peripheral smear pathology report from 03/17/2017: Mild thrombocytopenia , mild anemia with macrocytosis, mild eosinophilia and mild monocytosis. The mildly macrocytic anemia is unexplained by our review. No reason for thrombocytopenia is identified. No immature elements or malignancy is identified on our examination -I'm suspicious that the patient may have MDS and I would recommend referral to hematology and a bone marrow biopsy as an outpatient for further evaluation and management. CHRONIC STABLE MEDICAL CONDITIONS: SRIRAM: Continue home CPAP at all times while sleeping. Obstructive lung disease: I am not convinced that the patient is truly having an acute exacerbation as the patient has good air movement and there are no wheezes on exam. No steroids for now. Continue scheduled duo nebs 3 times a day and PRN albuterol nebs. Type 2 diabetes mellitus: Diabetic diet. Monitor blood glucose AC, HS and PRN. Correctional insulin AC,HS. Hold home Metformin while inpatient. GERD: Continue home PPI. Benign essential hypertension: Goal blood pressure is less than 140/90 mmHg. Continue home antihypertensive medications - Lisinopril, HCTZ. VTE prophylaxis: SCDs, Lovenox Code Status: Full Code Disposition: The patient was transferred to [facility] in stable condition on 03/18/2017. The accepting physician at [facility] is Dr. Bauer. RADIOLOGY REPORTS: PA and lateral chest x-ray on 03/15/2017 showed: 1. Hyperinflated lungs, with upper lobe predominant hyperlucency suggestive of potential background of COPD/emphysema. Correlate clinically. 2. Right upper lobe pulmonary consolidation, overall grossly stable given differences in technique and positioning. No new consolidation elsewhere within the lung knowles. 3. No definable pneumothorax. There may be a trace amount of right-sided pleural effusion, stable. No left-sided pleural effusion. 4. Borderline mild cardiomegaly, stable. Mediastinal silhouette grossly unchanged. Fullness at the right hilum could represent associated right-sided hilar lymphadenopathy versus obscuration by more central pulmonary infiltrates. 5. Trachea appears to be in gross normal position. 6. Degenerative changes of the thoracolumbar spine noted. Osseous structures are grossly intact. 7. Recommend continued follow-up to document resolution. PA and lateral chest x-ray on 03/18/2017 showed: Asymmetrically inflated lungs, with decreased right lung volume, stable. Right upper lobe consolidation, grossly stable. Slightly increased right-sided pleural effusion compared to the prior study was still fairly small with minimal worsening of the right basilar atelectasis. No definable pneumothorax. Left lung appears to be clear. Cardiac and mediastinal silhouettes are grossly stable with right hilar prominence likely adenopathy. Trachea appears to be slightly deviated to the right likely related to right lung volume loss. Degenerative changes of the spine and bilateral shoulders noted. IMPRESSION: 1. No new consolidation. 2. Stable right upper lobe consolidation. 3. Slightly increased small right-sided pleural effusion with right basilar compressive atelectasis. 4. Probable right hilar lymphadenopathy, stable. The coordination of care and transfer discharge process provided by me on the day of transfer (03/18/2017) for Eliel Bain was more than 45 minutes. This time consisted of direct patient care which included counseling, coordinating and discussing the patients multiple medical conditions as well as time spent coordinating and ensuring that the patient had an appropriate transfer plan in place as well as time spent discussing the patients case with the accepting physician, Dr. Bauer. Procedures Performed: none - Medications Medications: Active Medications Discontinued Medications Acetaminophen (Tylenol) 650 mg PO Q4H PRN PRN Reason: Mild pain Stop: 04/14/17 10:26 Last Admin: 03/17/17 10:31 Dose: 650 mg Albuterol Sulfate (Albuterol Sulfate 2.5 Mg/3 Ml) 2.5 mg IH Q4H PRN PRN Reason: Shortness Of Breath Stop: 04/14/17 13:36 Last Admin: 03/16/17 01:44 Dose: 2.5 mg Albuterol/Ipratropium (Duoneb 2.5-0.5mg/3ml Soln) 3 ml IH TIDRT SHIRLEY Stop: 04/14/17 13:01 Last Admin: 03/18/17 13:02 Dose: 3 ml Aspirin (Aspirin Enteric Coated) 81 mg PO DAILY SHIRLEY Stop: 04/15/17 09:01 Last Admin: 03/18/17 08:11 Dose: 81 mg Enoxaparin Sodium (Lovenox) 40 mg SC Q24H SHIRLEY Stop: 04/15/17 15:16 Last Admin: 03/18/17 15:04 Dose: Not Given Ferrous Sulfate (Ferrous Sulfate) 325 mg PO DAILY SHIRLEY Stop: 04/15/17 09:01 Last Admin: 03/18/17 08:11 Dose: 325 mg Fluticasone Propionate (Flonase) 1 spray NS BID [facility] Stop: 04/14/17 21:01 Last Admin: 03/18/17 08:11 Dose: 1 spray Hydrochlorothiazide (Microzide) 12.5 mg PO DAILY SHIRLEY Stop: 04/15/17 09:01 Last Admin: 03/18/17 08:12 Dose: 12.5 mg Cefepime HCl 1 gm/ Dextrose/ (Water) 100 mls @ 200 mls/hr IV ONCE STA PRN Reason: Protocol Stop: 03/15/17 10:54 Last Infusion: 03/15/17 12:04 Dose: Infused Sodium Chloride (Sodium Chloride 0.9%) 1,000 mls @ 126 mls/hr IV .Q7H57M PRN PRN Reason: HYDRATION Last Admin: 03/16/17 12:59 Dose: 126 mls/hr Cefepime HCl 1 gm/ Dextrose/ (Water) 100 mls @ 200 mls/hr IV Q12H SHIRLEY PRN Reason: Protocol Stop: 04/14/17 22:01 Last Admin: 03/18/17 11:42 Dose: 200 mls/hr Vancomycin HCl 1 gm/ Dextrose/ (Water) 250 mls @ 140 mls/hr IV Q12H SHIRLEY PRN Reason: Protocol Stop: 04/15/17 17:01 Last Admin: 03/18/17 04:51 Dose: 140 mls/hr Levofloxacin/Dextrose (Levaquin) 750 mg in 150 mls @ 100 mls/hr IV Q24H [facility] PRN Reason: Protocol Stop: 04/17/17 13:31 Last Admin: 03/18/17 14:07 Dose: 100 mls/hr Sodium Chloride (Sodium Chloride 0.9%) 1,000 mls @ 125 mls/hr IV .Q8H PRN PRN Reason: HYDRATION Stop: 04/17/17 14:26 Last Admin: 03/18/17 15:00 Dose: 125 mls/hr Insulin Human Regular (Humulin R) 0 units SC ACHSINS SHIRLEY PRN Reason: Protocol Stop: 04/14/17 17:01 Last Admin: 03/18/17 11:41 Dose: Not Given Lisinopril (Zestril) 20 mg PO DAILY [facility] Stop: 04/15/17 09:01 Last Admin: 03/18/17 08:13 Dose: 20 mg Pantoprazole Sodium (Protonix) 40 mg PO DAILY@0700 SHIRLEY Stop: 04/15/17 07:01 Last Admin: 03/18/17 06:48 Dose: 40 mg Potassium Chloride (K-Dur) 40 meq PO ONCE ONE Stop: 03/17/17 15:49 Last Admin: 03/17/17 16:38 Dose: 40 meq Saccharomyces Boulardii (Florastor) 250 mg PO BID [facility] [place] Stop: 04/15/17 21:01 Last Admin: 03/18/17 08:12 Dose: 250 mg Vancomycin HCl (Vancomycin Level) 1 XX ONCE ONE Stop: 03/18/17 04:31 Last Admin: 03/18/17 04:52 Dose: 1 Vitamin B Complex/Vitamin C (Vitabee W/C) 1 tab PO DAILY SHIRLEY Stop: 04/15/17 09:01 Last Admin: 03/18/17 08:18 Dose: 1 tab - Disposition Disposition: Other health care facility Condition: Fair Discharge Date: 03/18/17 Discharge Time: 17:30
== END 2017-03-18 16:36 | disposition short-term general hospital (02) | DRG 189 ==
LOC: MS 10:16
PROVIDERS: ADMIT Family Medicine; ATTEND Family Medicine
DX: J96.01 Acute respiratory failure with hypoxia (principal); J18.9 Pneumonia, unspecified organism; D69.6 Thrombocytopenia, unspecified; D50.9 Iron deficiency anemia, unspecified; E11.9 Type 2 diabetes mellitus without complications; J45.909 Unspecified asthma, uncomplicated; I10 Essential (primary) hypertension; Z95.5 Presence of coronary angioplasty implant and graft